=== PATIENT | female | born 1955 | race African-American/Black ===

== ENCOUNTER 2017-02-03 09:41 | Inpatient (IN) | payer SELFPAY ==
[2017-02-03] VITALS (11 sets, daily range): BP systolic 106–147; BP diastolic 74–98; PULSE 57–78; RESP 16–26; TEMP 97.6–98.2; O2SAT 97–100
[~2017-02-03] VITALS: Ht 167.6 cm; Wt 49.5 kg
--- NOTE | 2017-02-03 10:22 | PD ---
HPI Chief Complaint: General Weakness Time Seen by Provider: 10:22 Travel History International Travel<30 days: No Contact w/Intl Traveler<30days: No Traveled to known affect area: No History of Present Illness HPI 62-year-old female came to the emergency room with vague complains of mid back pain going all the way across. Patient says it started yesterday and the pain is just there all the times. No aggravating or relieving factors. No history of nausea vomiting. Her significant other is in the room and says that she has just been tired and sleeping all day. Vital signs were acceptable. She has history of CVA in the past but currently not on any medications. Patient also mentioned that in between her fourth and the fifth toe of both feet she has an ulcer that is not healing well. [facility] Past Medical History Narrative Medical List of her past medical, surgical, social and family history is reviewed from the nursing note. Hx Anticoagulant Therapy: No Cardiovascular Problems: No Chemotherapy: No Cerebrovascular Accident: Yes (2011) Diabetes: No Respiratory: No ?: Not Past Surgical History Hysterectomy: No Social History Alcohol Use: No Tobacco Use: No Substance Use: No Allergies-Medications (Allergen,Severity, Reaction): Coded Allergies: No Known Allergies (Unverified , 02/03/17) Comments No known drug allergies. Reported Meds & Prescriptions Reported Meds & Active Scripts Active Narrative Medication List of her home medications reviewed from the nursing note. Review of Systems Except as stated in HPI: all other systems reviewed are Neg Physical Exam Narrative GENERAL: Awake, alert, mild distress SKIN: Focused skin assessment warm/dry. There is a nonhealing ulcer that is blanched between the fourth and the fifth toe on both feet HEAD: Atraumatic. Normocephalic. EYES: Pupils equal and round. No scleral icterus. No injection or drainage. ENT: No nasal bleeding or discharge. Mucous membranes pink and moist. NECK: Trachea midline. No JVD. CARDIOVASCULAR: Regular rate and rhythm. No murmur appreciated. RESPIRATORY: No accessory muscle use. Clear to auscultation. Breath sounds equal bilaterally. GASTROINTESTINAL: Abdomen soft, non-tender, nondistended. Hepatic and splenic margins not palpable. MUSCULOSKELETAL: No obvious deformities. No clubbing. No cyanosis. No edema. NEUROLOGICAL: Awake and alert. No obvious cranial nerve deficits. Motor grossly within normal limits. Normal speech. PSYCHIATRIC: Appropriate mood and affect; insight and judgment normal. Data Data Last Documented VS Vital Signs Date Time Temp Pulse Resp B/P (MAP) Pulse Ox O2 Delivery O2 Flow Rate FiO2 02/03/17 12:00 57 18 134/77 (96) 100 Room Air 02/03/17 10:39 97.6 Orders Orders Electrocardiogram (02/03/17 10:50) Basic Metabolic Panel (Bmp) (02/03/17 10:50) Ckmb (Isoenzyme) Profile (02/03/17 10:50) Complete Blood Count With Diff (02/03/17 10:50) D-Dimer (02/03/17 10:50) Magnesium (Mg) (02/03/17 10:50) Prothrombin Time / Inr (Pt) (02/03/17 10:50) Act Partial Throm Time (Ptt) (02/03/17 10:50) Troponin I (02/03/17 10:50) Chest, Single Ap (02/03/17 10:50) Ecg Monitoring (02/03/17 10:50) Bilateral Bp Monitoring (02/03/17 10:50) Iv Access Insert/Monitor (02/03/17 10:50) Oximetry (02/03/17 10:50) Oxygen Administration (02/03/17 10:50) Aspirin Chew (Aspirin Chew) (02/03/17 11:00) Sodium Chloride 0.9% Flush (Ns Flush) (02/03/17 11:00) CKMB (02/03/17 10:50) CKMB% (02/03/17 10:50) Heparin Inj (Heparin Inj) (02/03/17 11:30) Heparin Inj (Heparin Inj) (02/03/17 17:30) Heparin Inj (Heparin Inj) (02/03/17 17:30) Heparin-D5w 25,000 U/250 Ml (Heparin-D5w (02/03/17 11:30) Act Partial Throm Time (Ptt) (02/03/17 11:29) Cbc No Diff, Includes Plts (02/03/17 11:29) Cta Thor Abd Aorta W Iv C W3d (02/03/17 ) Sodium Chlor 0.9% 1000 Ml Inj (Ns 1000 M (02/03/17 12:15) Admit To Inpatient (02/03/17 ) Code Status (02/03/17 12:15) Vital Signs (Adult) Q4H (02/03/17 12:15) Activity Bed Rest With Brp (02/03/17 ) Drafter Engineering / Telemetry RAMONA.Q8H (02/03/17 12:15) Diet Heart Healthy (02/03/17 Lunch) Sodium Chloride 0.9% Flush (Ns Flush) (02/03/17 21:00) Sodium Chloride 0.9% Flush (Ns Flush) (02/03/17 12:15) Aspirin Chew (Aspirin Chew) (02/03/17 12:15) Nitroglycerin Sl (Nitrostat Sl) (02/03/17 12:15) Morphine Inj (Morphine Inj) (02/03/17 12:15) Pantoprazole (Protonix) (02/03/17 12:15) Temazepam (Restoril) (02/03/17 21:00) Creatine Kinase (Cpk) (02/03/17 12:15) Creatine Kinase (Cpk) (02/03/17 18:15) Troponin I (02/03/17 12:15) Troponin I (02/03/17 18:15) Magnesium (Mg) (02/03/17 12:15) Electrocardiogram (02/03/17 12:15) Electrocardiogram (02/03/17 18:15) Echo 2d Comp With Doppler (02/03/17 12:15) Scd Bilateral/Knee High RAMONA.BID (02/03/17 12:15) Inpatient Certification (02/03/17 ) Consult Pt Eval & Treat (02/03/17 12:20) Admit Order (Ed Use Only) (02/03/17 12:23) Labs Laboratory Tests Test 02/03/17 10:50 White Blood Count 4.9 TH/MM3 Red Blood Count 5.68 MIL/MM3 Hemoglobin 16.0 GM/DL Hematocrit 48.5 % Mean Corpuscular Volume 85.3 FL Mean Corpuscular Hemoglobin 28.1 PG Mean Corpuscular Hemoglobin Concent 33.0 % Red Cell Distribution Width 14.8 % Platelet Count 158 TH/MM3 Mean Platelet Volume 9.1 FL Neutrophils (%) (Auto) 63.3 % Lymphocytes (%) (Auto) 17.7 % Monocytes (%) (Auto) 18.5 % Eosinophils (%) (Auto) 0.0 % Basophils (%) (Auto) 0.5 % Neutrophils # (Auto) 3.1 TH/MM3 Lymphocytes # (Auto) 0.9 TH/MM3 Monocytes # (Auto) 0.9 TH/MM3 Eosinophils # (Auto) 0.0 TH/MM3 Basophils # (Auto) 0.0 TH/MM3 CBC Comment DIFF FINAL Differential Comment Prothrombin Time 11.5 SEC Prothromb Time International Ratio 1.0 RATIO Activated Partial Thromboplast Time 26.1 SEC D-Dimer Quantitative (PE/DVT) 0.67 MG/L FEU Blood Urea Nitrogen 18 MG/DL Creatinine 1.35 MG/DL Random Glucose 103 MG/DL Calcium Level 9.3 MG/DL Magnesium Level 2.2 MG/DL Sodium Level 137 MEQ/L Potassium Level 4.0 MEQ/L Chloride Level 104 MEQ/L Carbon Dioxide Level 27.0 MEQ/L Anion Gap 6 MEQ/L Estimat Glomerular Filtration Rate 48 ML/MIN Total Creatine Kinase 116 U/L Creatine Kinase MB 2.0 NG/ML Troponin I 0.11 NG/ML MDM Medical Decision Making Medical Screen Exam Complete: Yes Emergency Medical Condition: Yes Medical Record Reviewed: Yes Interpretation(s) Twelve-lead EKG was reviewed by me. Normal sinus rhythm, normal axis, minimal ST elevation in the septal leads that is less than 1 box. Heart rate of 66 bpm. Differential Diagnosis ACS, non-STEMI, unstable angina Narrative Course 11:35 AM blood test results are back and troponin is elevated. I started her on heparin bolus and drip. Patient will need to be admitted. Awaiting for the hospitalist to call back. Critical Care Narrative Aggregate critical care time was 30 minutes. Time to perform other separately billable procedures was not included in the critical care time. My time did not include minutes spent treating any other patients simultaneously or on activities that did not directly contribute to the patient's treatment. The services I provided to this patient were to treat and/or prevent clinically significant deterioration that could result in: Non-STEMI, heparin bolus and drip I provided critical care services requiring my management, as noted below: Chart data review, documentation time, medication orders and management, vital sign assessments/reviewing monitor data, ordering and reviewing lab tests, ordering and interpreting/reviewing x-rays and diagnostic studies, care of the patient and discussion of the patient with the admitting physicians. Procedures EKG Prior to Arrival: No Diagnosis Primary Impression: Non-STEMI (non-ST elevated myocardial infarction) Admitting Information Admitting Physician Requests: Admit Scripts Aspirin (Aspirin Low Strength) 81 Mg Chew 162 MG PO DAILY, #30 EA Prov: Ananth Felipe MD 02/05/17 Amlodipine (Norvasc) 5 Mg Tab 2.5 MG PO DAILY, #30 TAB Prov: Ananth Felipe MD 02/05/17 Jose Masterson MD Feb 03, 2017 10:22
[2017-02-03] MEDS ORDERED: ASPIRIN 81 MG CHEW TAB PO ONE (11:00)
[2017-02-03] MEDS ORDERED: SODIUM CHLORIDE 0.9% FLUSH 10 ML FLUSH IVF PRN (11:00)
[2017-02-03 11:03] LABS: AUTOMATED NEUTROPHIL # 3.1 TH/MM3 (1.8-7.7); BASOPHIL % 0.5 % (0.0-2.0); HEMATOCRIT 48.5 % (35.0-46.0); HEMO FLAGS DIFF FINAL; LYMPH % 17.7 % (9.0-44.0); LYMPHOCYTE # 0.9 TH/MM3 (1.0-4.8); MEAN CELL VOLUME 85.3 FL (80.0-100.0); MEAN CORPUSCULAR HEMOGLOBIN 28.1 PG (27.0-34.0); MONO % 18.5 % (0.0-8.0); NEUT % 63.3 % (16.0-70.0); PLATELET COUNT 158 TH/MM3 (150-450); RED BLOOD COUNT 5.68 MIL/MM3 (4.00-5.30); RED CELL DISTRIBUTION WIDTH 14.8 % (11.6-17.2); WHITE BLOOD COUNT 4.9 TH/MM3 (4.0-11.0)
[2017-02-03 11:18] LABS: APTT (PATIENT) 26.1 SEC (24.3-30.1); PROTHROMBIN TIME - PATIENT 11.5 SEC (9.8-11.6)
[2017-02-03 11:24] LABS: ANION GAP 6 MEQ/L (5-15); BLOOD UREA NITROGEN 18 MG/DL (7-18); CHLORIDE 104 MEQ/L (98-107); GLOMERULAR FILTRATION RATE 48 ML/MIN (>89); MAGNESIUM 2.2 MG/DL (1.5-2.5); SODIUM (NA) 137 MEQ/L (136-145)
[2017-02-03 11:27] LABS: CREATINE KINASE 116 U/L (26-192)
[2017-02-03] MEDS ORDERED: HEPARIN-D5W 25,000 U/250 ML 250 ML IV PRN (11:30)
[2017-02-03] MEDS ORDERED: HEPARIN SODIUM - IV 10,000 UNITS/10 ML VIAL IV ONE (11:30)
--- NOTE | 2017-02-03 11:57 | RADRPT ---
EXAM DATE/TIME: 02/03/2017 11:15 [facility] COMPARISON: No previous studies available for comparison. INDICATIONS : Chest pains, abdomen pains, nausea, and general weakness. MEDICAL HISTORY : None. SURGICAL HISTORY : None. ENCOUNTER: Initial ACUITY: 2 days PAIN SCORE: 5/10 LOCATION: Bilateral chest FINDINGS: A single view of the chest demonstrates the lungs to be symmetrically aerated without evidence of mas s, infiltrate or effusion. The heart size is mildly prominent. There is no perihilar edema. There ar e multiple overlying electrocardiogram leads.. Osseous structures are intact. CONCLUSION: No acute disease. Andreas Bills MD on February 03, 2017 at 11:55 Board Certified Radiologist. This report was verified electronically.
[2017-02-03] MEDS ORDERED: SODIUM CHLOR 0.9% 1000 ML INJ 1,000 ML IV ONE (12:15)
[2017-02-03] MEDS ORDERED: SODIUM CHLORIDE 0.9% FLUSH 10 ML FLUSH IV FLUSH PRN (12:15)
[2017-02-03] MEDS: ASPIRIN 81 MG CHEW TAB PO SCH (12:15)
[2017-02-03] MEDS ORDERED: NITROGLYCERIN 0.4 MG SL 25 TABS/BTL SL PRN (12:15)
[2017-02-03] MEDS ORDERED: MORPHINE SULFATE 4 MG/ML INJ IV PUSH PRN (12:15)
[2017-02-03] MEDS ORDERED: IODIXANOL 320 MG/ML 10 ML VIAL (for Rad CT) IV ONE (12:52)
--- NOTE | 2017-02-03 13:07 | RADRPT ---
EXAM DATE/TIME: 02/03/2017 12:26 [facility] COMPARISON: CHEST SINGLE AP, February 03, 2017, 11:15. INDICATIONS : Back pain and weakness. Chest pain IV CONTRAST: 95 cc Visipaque (iodixanol) IV RADIATION DOSE: 10.89 CTDIvol (mGy) MEDICAL HISTORY : Cerebrovascular disease. Hypertension. SURGICAL HISTORY : Tubal ligation. ENCOUNTER: Initial ACUITY: 2 days PAIN SCALE: 7/10 LOCATION: Bilateral back TECHNIQUE: Volumetric scanning was performed using a multi-row detector CT scanner. The data was post processed with a variety of visualization algorithms including full volume maximum intensity projection, multi -planar sliding thin slab reformation, curved planar reformation, and surface rendering techniques. Using automated exposure control and adjustment of the mA and/or kV according to patient size, radiat ion dose was kept as low as reasonably achievable to obtain optimal diagnostic quality images. DICOM format image data is available electronically for review and comparison. FINDINGS: LUNGS: There is no consolidation or pneumothorax. No concerning pulmonary nodule is visualized. No pleural fluid is present. MEDIASTINUM: No abnormally enlarged lymph nodes by CT criteria. No axillary or hilar abnormalities are identified. ABDOMEN: The liver and spleen are free of focal defects. The gallbladder and pancreas demonstrate no abnormali ty. The adrenal glands are normal. The kidneys demonstrate no evidence of solid renal mass or hydrone phrosis. No free fluid or abdominal masses are identified. No para-aortic adenopathy is seen. PELVIS: No evidence of free fluid or pelvic mass. No abnormally enlarged inguinal or retroperitoneal lymph no wes are present. The bladder is unremarkable. THORACIC AORTA: The thoracic aortic root is normal with normal branching of the great vessels. There is no evidence of aneurysm or dissection. ABDOMINAL AORTA: The aorta is normal in caliber without aneurysm or dissection. The renal arteries are patent bilater ally. The proximal celiac and superior mesenteric arteries are patent and normal in diameter. PELVIC VESSELS: The internal iliac and external iliac vessels are patent without aneurysm or stenosis. CONCLUSION: The thoracic and abdominal aorta are patent with no aneurysm or dissection. Andreas Bills MD on February 03, 2017 at 13:02 Board Certified Radiologist. This report was verified electronically.
[2017-02-03] MEDS: PANTOPRAZOLE SOD 40 MG DELAYED RELEASE TAB PO SCH (14:02)
--- NOTE | 2017-02-03 16:14 | ECHRPT ---
Indication: CHEST PAIN CONCLUSIONS Severe concentric left ventricular hypertrophy. The left ventricular systolic function is low normal with an estimated ejection fraction of 50%. Trace mitral valve regurgitation. Trace aortic regurgitation. BP: 137 / 77 HR: 57 Rhythm: Sinus MEASUREMENTS (Male / Female) Normal Values Technical Quality:Fair 2D ECHO LV Diastolic Diameter PLAX 3.5 cm 4.2 - 5.9 / 3.9 - 5.3 cm LV Systolic Diameter PLAX 2.5 cm IVS Diastolic Thickness 1.6 cm 0.6 - 1.0 / 0.6 - 0.9 cm LVPW Diastolic Thickness 1.6 cm 0.6 - 1.0 / 0.6 - 0.9 cm LV Relative Wall Thickness 0.9 LVOT Diameter 1.9 cm Aortic Root Diameter 2.8 cm LA Systolic Diameter LX 2.4 cm 3.0 - 4.0 / 2.7 - 3.8 cm M-MODE AV Cusp Separation MM 1.4 cm DOPPLER AV Peak Velocity 129.0 cm/s AV Peak Gradient 6.7 mmHg AV Mean Gradient 4.0 mmHg AV Velocity Time Integral 23.3 cm AI Peak Velocity 476.0 cm/s AI Peak Gradient 90.6 mmHg AI Pressure Half Time 587.0 ms LVOT Peak Velocity 85.7 cm/s LVOT Peak Gradient 2.9 mmHg LVOT Velocity Time Integral 14.8 cm LVOT Cardiac Index 1444.7 cm/minm AV Area Cont Eq vti 1.8 cm AV Area Cont Eq pk 1.9 cm Mitral E Point Velocity 81.4 cm/s Mitral A Point Velocity 64.2 cm/s Mitral E to A Ratio 1.3 LV E' Lateral Velocity 6.1 cm/s Mitral E to LV E' Lateral Ratio 13.3 LV E' Septal Velocity 3.4 cm/s Mitral E to LV E' Septal Ratio 23.9 PV Peak Velocity 62.4 cm/s PV Peak Gradient 1.6 mmHg FINDINGS LEFT VENTRICLE Severe concentric left ventricular hypertrophy. The left ventricular systolic function is low normal with an estimated ejection fraction of 50%. RIGHT VENTRICLE Normal right ventricular size and systolic function. LEFT ATRIUM The left atrial size is mildly dilated. RIGHT ATRIUM The right atrial size is normal. ATRIAL SEPTUM No atrial level shunt is demonstrated by color flow Doppler interrogation. AORTA The aortic root and proximal ascending aorta are normal in size on limited imaging. MITRAL VALVE Structurally normal mitral valve. Trace mitral valve regurgitation. AORTIC VALVE Trileaflet aortic valve. Trace aortic valve regurgitation. TRICUSPID VALVE Structurally normal tricuspid valve. No tricuspid regurgitation. Normal estimated pulmonary pressures. PULMONARY VALVE No pulmonary valve regurgitation or stenosis. VESSELS The inferior vena cava (IVC) is normal in size. There is greater than 50% respiratory change in dimension of the inferior vena cava (normal). PERICARDIUM No pericardial effusion. James Grande MD (Electronically Signed) Final Date:03 February 2017 16:14
[2017-02-03] MEDS ORDERED: HEPARIN SODIUM - IV 10,000 UNITS/10 ML VIAL IV PRN ×2 (17:30)
[2017-02-03] MEDS ORDERED: TEMAZEPAM 15 MG CAP PO PRN (21:00)
[2017-02-03] MEDS: SODIUM CHLORIDE 0.9% FLUSH 10 ML FLUSH IV FLUSH SCH (21:18)
[2017-02-03 22:19] LABS: HEMATOCRIT 43.2 % (35.0-46.0); MEAN CELL VOLUME 83.9 FL (80.0-100.0); MEAN CORPUSCULAR HEMOGLOBIN 28.8 PG (27.0-34.0); MEAN CORPUSCULAR HGB CONC 34.4 % (32.0-36.0); PLATELET COUNT 134 TH/MM3 (150-450); RED BLOOD COUNT 5.15 MIL/MM3 (4.00-5.30); RED CELL DISTRIBUTION WIDTH 14.2 % (11.6-17.2); REVIEW FLAG FINAL; WHITE BLOOD COUNT 3.7 TH/MM3 (4.0-11.0)
[2017-02-03 22:56] LABS: APTT (PATIENT) 97.9 SEC (24.3-30.1)
[2017-02-04] VITALS (24 sets, daily range): BP systolic 123–149; BP diastolic 85–94; PULSE 64–77; RESP 14–24; TEMP 98.3–98.8; O2SAT 98–100
[2017-02-04 03:02] LABS: APTT (PATIENT) 53.9 SEC (24.3-30.1)
[2017-02-04 03:07] LABS: MAGNESIUM 2.1 MG/DL (1.5-2.5)
[2017-02-04] MEDS: ASPIRIN 81 MG CHEW TAB PO SCH (08:51)
[2017-02-04] MEDS: PANTOPRAZOLE SOD 40 MG DELAYED RELEASE TAB PO SCH (08:51)
[2017-02-04] MEDS: SODIUM CHLORIDE 0.9% FLUSH 10 ML FLUSH IV FLUSH SCH ×2 (08:52→21:00)
[2017-02-04 13:10] LABS: APTT (PATIENT) 40.8 SEC (24.3-30.1)
--- NOTE | 2017-02-04 17:24 | HHI.HP ---
HPI Service [facility] Primary [facility] Physician Unknown Admission Diagnosis unstable angina, elevated troponin, non-STEMI Diagnoses: Chief Complaint: Chest pain. Travel History International Travel<30 Days: No Contact w/Intl Traveler <30 Da: No Traveled to Known Affected Are: No History of Present Illness 62-year-old female with a medical history significant for CVA, noncompliant with medications who presented to the emergency room with many vague complaints. The patient is a poor historian. She reports that she has been feeling very anxious with the storm and has experienced some chest pain which she is not able to describe. Pain only last minutes. She also had some upper back pain. Then reports a feeling of extreme fatigue. She presented to the emergency room and was found to have elevated troponins. The patient was started on a heparin drip in the emergency room and hospitalist service consulted for admission and further cardiac workup and treatment. Review of Systems ROS Limitations: Poor Historian Constitutional: DENIES: Fever, Chills Respiratory: DENIES: Shortness of breath Cardiovascular: COMPLAINS OF: Chest pain Gastrointestinal: DENIES: Nausea, Vomiting Psychiatric: COMPLAINS OF: Anxiety Except as stated in HPI: all other systems reviewed are Neg Past Family Social History Past Medical History History of CVA which affected the right side. She reports she regained most of the function back. Past Surgical History Tubal ligation Reported Medications Reported Meds & Active Scripts Active No Active Prescriptions or Reported Medications Allergies: Coded Allergies: No Known Allergies (Unverified , 02/03/17) Family History Reviewed and found to be noncontributory. No known family history of heart disease. Social History Patient does not use tobacco, alcohol, or illicit drug. Physical Exam Vital Signs Vital Signs Date Time Temp Pulse Resp B/P (MAP) Pulse Ox O2 Delivery O2 Flow Rate FiO2 02/04/17 16:29 70 02/04/17 15:44 98.6 74 18 137/91 (106) 98 02/04/17 15:44 74 02/04/17 14:11 72 02/04/17 13:56 74 02/04/17 11:47 77 02/04/17 11:36 98.3 72 17 123/85 (98) 100 02/04/17 10:00 76 02/04/17 09:00 76 02/04/17 08:14 98.7 68 17 145/94 (111) 100 02/04/17 08:00 66 02/04/17 07:30 66 02/04/17 06:00 70 02/04/17 05:00 64 02/04/17 04:00 68 02/04/17 03:00 64 02/04/17 03:00 98.4 64 14 128/93 (105) 99 02/04/17 02:00 64 02/04/17 01:00 66 02/04/17 00:00 72 02/03/17 23:00 98.2 67 22 131/89 (103) 99 02/03/17 23:00 74 02/03/17 22:00 62 02/03/17 21:23 97.8 69 26 131/84 (100) 99 02/03/17 21:00 68 02/03/17 20:00 78 Physical Exam GENERAL: This is a well-nourished, well-developed patient, in no apparent distress. SKIN: No rashes, ecchymoses or lesions. Cool and dry. HEAD: Atraumatic. Normocephalic. No temporal or scalp tenderness. EYES: Pupils equal round and reactive. Extraocular motions intact. No scleral icterus. No injection or drainage. ENT: Nose without bleeding, purulent drainage or septal hematoma. Throat without erythema, tonsillar hypertrophy or exudate. Uvula midline. Airway patent. NECK: Trachea midline. No JVD or lymphadenopathy. Supple, nontender, no meningeal signs. CARDIOVASCULAR: Regular rate and rhythm without murmurs, gallops, or rubs. RESPIRATORY: Clear to auscultation. Breath sounds equal bilaterally. No wheezes , rales, or rhonchi. GASTROINTESTINAL: Abdomen soft, non-tender, nondistended. No hepato-splenomegaly , or palpable masses. No guarding. MUSCULOSKELETAL: Extremities without clubbing, cyanosis, or edema. No joint tenderness, effusion, or edema noted. No calf tenderness. Negative Homans sign bilaterally. NEUROLOGICAL: Awake and alert. Cranial nerves II through XII intact. Motor and sensory grossly within normal limits. Five out of 5 muscle strength in all muscle groups. Normal speech. Laboratory Laboratory Tests Test 02/03/17 21:31 02/04/17 02:34 02/04/17 12:40 02/04/17 16:38 White Blood Count 3.7 Red Blood Count 5.15 Hemoglobin 14.9 Hematocrit 43.2 Mean Corpuscular Volume 83.9 Mean Corpuscular Hemoglobin 28.8 Mean Corpuscular Hemoglobin Concent 34.4 Red Cell Distribution Width 14.2 Platelet Count 134 Mean Platelet Volume 9.8 Activated Partial Thromboplast Time 97.9 53.9 40.8 Total Creatine Kinase 92 84 Troponin I 0.09 0.09 Magnesium Level 2.1 Blood Urea Nitrogen 15 Creatinine 1.00 Random Glucose 79 Calcium Level 8.6 Sodium Level 140 Potassium Level 4.0 Chloride Level 105 Carbon Dioxide Level 28.0 Anion Gap 7 Estimat Glomerular Filtration Rate 68 Result Diagram: 02/03/17213002/03/17 1050 Imaging Last Impressions Chest X-Ray 02/03/17 1050 Signed Impressions: Service Date/Time: Friday, February 03, 2017 11:15 - CONCLUSION: No acute disease. Andreas Bills MD Aorta CTA 02/03/17 0000 Signed Impressions: Service Date/Time: Friday, February 03, 2017 12:26 - CONCLUSION: The thoracic and abdominal aorta are patent with no aneurysm or dissection. MD Wendi Ontiverosi VTE Risk Assessment Alexirini VTE Risk Assessment: Mod/High Risk (score >= 2) Caprini Risk Assessment Model Point Value = 1 Point Value = 2 Point Value = 3 Point Value = 5 Age 41-60 Minor surgery BMI > 25 kg/m2 Swollen legs Varicose veins or History of unexplained or recurrent spontaneous Oral contraceptives or hormone replacement Sepsis (< 1 month) Serious lung disease, including pneumonia (< 1 month) Abnormal pulmonary function Acute myocardial infarction Congestive heart failure (< 1 month) History of inflammatory bowel disease Medical patient at bed rest Age 61-74 Arthroscopic surgery Major open surgery (> 45 min) Laparoscopic surgery (> 45 min) Malignancy Confined to bed (> 72 hours) Immobilizing plaster cast Central venous access Age >= 75 History of VTE Family history of VTE Factor V Leiden Prothrombin [id number] Lupus anticoagulant Anticardiolipin antibodies Elevated serum homocysteine Heparin-induced thrombocytopenia Other congenital or acquired thrombophilia Stroke (< 1 month) Elective arthroplasty Hip, pelvis, or leg fracture Acute spinal cord injury (< 1 month) Prophylaxis Regimen Total Risk Factor Score Risk Level Prophylaxis Regimen 0-1 Low Early ambulation 2 Moderate Order ONE of the following: *Sequential Compression Device (SCD) *Heparin 5000 units SQ BID 3-4 Higher Order ONE of the following medications: *Heparin 5000 units SQ TID *Enoxaparin/Lovenox 40 mg SQ daily (WT < 150 kg, CrCl > 30 mL/min) *Enoxaparin/Lovenox 30 mg SQ daily (WT < 150 kg, CrCl > 10-29 mL/min) *Enoxaparin/Lovenox 30 mg SQ BID (WT < 150 kg, CrCl > 30 mL/min) AND/OR *Sequential Compression Device (SCD) 5 or more Highest Order ONE of the following medications: *Heparin 5000 units SQ TID (Preferred with Epidurals) *Enoxaparin/Lovenox 40 mg SQ daily (WT < 150 kg, CrCl > 30 mL/min) *Enoxaparin/Lovenox 30 mg SQ daily (WT < 150 kg, CrCl > 10-29 mL/min) *Enoxaparin/Lovenox 30 mg SQ BID (WT < 150 kg, CrCl > 30 mL/min) AND *Sequential Compression Device (SCD) Assessment and Plan Problem List: (1) Elevated troponin I level ICD Code: R74.8 - Abnormal levels of other serum enzymes Plan: Mildly elevated at 0.11, She does have some degree of renal insufficiency which may contribute to the elevation in troponin. Currently chest pain-free. Risk factors include age. History of ischemic CVA. - Patient currently on heparin drip. Started in the emergency room. - Consult cardiology (2) History of CVA (cerebrovascular accident) ICD Code: Z86.73 - Personal history of transient ischemic attack (TIA), and cerebral infarction without residual deficits Plan: Apparently patient was previously on medications but she stopped it on her own. She should at least be on an aspirin. Restart aspirin. Discussed with the patient the need to be compliant and follow -up with medical doctors before stopping her medications. (3) Renal insufficiency ICD Code: N28.9 - Disorder of kidney and ureter, unspecified Plan: Likely prerenal azotemia from dehydration. - Patient received a liter of IV fluid. Encourage oral hydration. Follow-up BMP in the morning. Physician Certification 2 Midnight Certification Type: Admission for Inpatient Services Order for Inpatient Services The services are ordered in accordance with Medicare regulations or non- Medicare payer requirements, as applicable. In the case of services not specified as inpatient-only, they are appropriately provided as inpatient services in accordance with the 2-midnight benchmark. Estimated LOS (days): 2 days is the estimated time the patient will need to remain in the hospital, assuming treatment plan goals are met and no additional complications. Post-Hospital Plan: Home Ananth eFlipe MD Feb 04, 2017 17:24
--- NOTE | 2017-02-04 21:38 | EKG ---
Date Performed: 02/03/2017 Time Performed: 18:30:32 PTAGE: 62 years EKG: Sinus rhythm with PAC(s) Prolonged QT interval Possible septal infarct - age undetermined Abnormal ECG PREVIOUS TRACING : 02/03/2017 13.48 Compared to prior tracing no significant change DOCTOR: Jorge Alicea Interpretating Date/Time 02/04/2017 21:37:20
--- NOTE | 2017-02-04 21:51 | EKG ---
Date Performed: 02/03/2017 Time Performed: 13:48:00 PTAGE: 62 years EKG: Sinus rhythm MODERATE VOLTAGE CRITERIA FOR LVH, CONSIDER NORMAL VARIANT POSSIBLE SEPTAL MYOCARDIAL INFARCTION BOR DERLINE ECG PREVIOUS TRACING : 02/03/2017 09.59 Compared to prior tracing no significant change DOCTOR: Jorge Alicea Interpretating Date/Time 02/04/2017 21:51:10
--- NOTE | 2017-02-04 22:01 | EKG ---
Date Performed: 02/03/2017 Time Performed: 09:59:40 PTAGE: 62 years EKG: Sinus rhythm VOLTAGE CRITERIA FOR LVH POSSIBLE SEPTAL MYOCARDIAL INFARCTION ABNORMAL ECG NO PREVIOUS TRACING DOCTOR: Jorge Alicea Interpretating Date/Time 02/04/2017 21:59:18
[2017-02-05] VITALS (20 sets, daily range): BP systolic 136–159; BP diastolic 92–98; PULSE 60–86; RESP 18–20; TEMP 98.1–98.7; O2SAT 99–100
[2017-02-05 06:46] LABS: APTT (PATIENT) 39.3 SEC (24.3-30.1)
[2017-02-05] MEDS: PANTOPRAZOLE SOD 40 MG DELAYED RELEASE TAB PO SCH (08:36)
[2017-02-05] MEDS: SODIUM CHLORIDE 0.9% FLUSH 10 ML FLUSH IV FLUSH SCH (08:37)
[2017-02-05] MEDS: ASPIRIN 81 MG CHEW TAB PO SCH (08:37)
--- NOTE | 2017-02-05 10:57 | HHI.PR ---
Subjective Remarks Patient reports she is feeling great. No chest pain or shortness of breath. Wondering when she can go home. Objective Vitals Vital Signs Date Time Temp Pulse Resp B/P (MAP) Pulse Ox O2 Delivery O2 Flow Rate FiO2 02/05/17 08:30 98.7 67 18 139/92 (108) 99 02/05/17 07:01 66 02/05/17 06:00 60 02/05/17 05:00 70 02/05/17 04:00 68 02/05/17 03:00 98.5 72 20 149/93 (111) 100 02/05/17 03:00 62 02/05/17 02:00 66 02/05/17 01:00 68 02/05/17 00:00 86 02/04/17 23:00 98.5 72 20 149/92 (111) 100 02/04/17 23:00 70 02/04/17 22:00 70 02/04/17 21:00 66 02/04/17 20:00 70 02/04/17 19:00 70 02/04/17 19:00 98.8 72 24 137/94 (108) 99 02/04/17 18:26 74 02/04/17 16:29 70 02/04/17 15:44 98.6 74 18 137/91 (106) 98 02/04/17 15:44 74 02/04/17 14:11 72 02/04/17 13:56 74 02/04/17 11:47 77 02/04/17 11:36 98.3 72 17 123/85 (98) 100 I/O 02/04/17 02/04/17 02/04/17 02/05/17 02/05/17 02/05/17 06:59 14:59 22:59 06:59 14:59 22:59 Intake Total 264 ml 976 ml 312 ml Output Total 900 ml 750 ml Balance -636 ml 976 ml -438 ml Intake Oral 240 ml 960 ml 240 ml IV Total 24 ml 16 ml 72 ml Output Urine Total 900 ml 750 ml # Voids 4 # Bowel Movements 1 Result Diagram: 02/03/17 2131 02/04/17 1638 Imaging Last Impressions Chest X-Ray 02/03/17 1050 Signed Impressions: Service Date/Time: Friday, February 03, 2017 11:15 - CONCLUSION: No acute disease. Andreas Bills MD Aorta CTA 02/03/17 0000 Signed Impressions: Service Date/Time: Friday, February 03, 2017 12:26 - CONCLUSION: The thoracic and abdominal aorta are patent with no aneurysm or dissection. Andreas Bills MD Objective Remarks GENERAL: This is a well-nourished, well-developed patient, in no apparent distress. CARDIOVASCULAR: Normal rate and regular rhythm without murmurs, gallops, or rubs. RESPIRATORY: Good respiratory efforts. Breath sounds equal and clear to auscultation bilaterally. GASTROINTESTINAL: Abdomen soft, non-tender, non-distended. Normal active bowel sounds MUSCULOSKELETAL: Extremities without cyanosis, or edema. NEURO: Alert & Oriented x4 to person, place, time, situation. Moves all ext x4 PSYCH: Appropriate mood and affect. A/P Problem List: (1) Elevated troponin I level ICD Code: R74.8 - Abnormal levels of other serum enzymes Plan: Mildly elevated at 0.11, She does have some degree of renal insufficiency which may contribute to the elevation in troponin. Currently chest pain-free. Risk factors include age. History of ischemic CVA. - Patient was started on a heparin drip. She was evaluated by cardiology who indicated the mild troponin elevation is likely secondary to renal insufficiency. Advised outpatient follow-up with cardiology. No further inpatient workup indicated. -Patient's symptoms completely resolved. She can be discharged home. - She is discharged on aspirin and amlodipine for better blood pressure control. - Awaiting lipid profile results to determine if the patient would benefit from a statin. (2) History of CVA (cerebrovascular accident) ICD Code: Z86.73 - Personal history of transient ischemic attack (TIA), and cerebral infarction without residual deficits Plan: Apparently patient was previously on medications but she stopped it on her own. She should at least be on an aspirin. Restart aspirin. Discussed with the patient the need to be compliant and follow -up with medical doctors before stopping her medications. (3) Renal insufficiency ICD Code: N28.9 - Disorder of kidney and ureter, unspecified Plan: Likely prerenal azotemia from dehydration. - Patient received a liter of IV fluid. Renal function improved. Encourage oral hydration. Discharge Planning Discharge home in good condition Follow-up with: PCP and cardiology outpatient Diet: Heart healthy Activity: Regular as tolerated Meds: Per med rec Ananth Felipe MD Feb 05, 2017 10:57
[2017-02-05] MEDS ORDERED: amLODIPine BESYLATE 5 MG TAB PO SCH (12:15)
--- NOTE | 2017-02-05 12:59 | MB ---
cc: FRANCES GONZALES DATE OF CONSULTATION: 02/05/2017 1953 REASON FOR CONSULTATION Elevated troponins. HISTORY OF PRESENT ILLNESS 62-year-old female with past medical history significant for CVA, noncompliant with medications, hypertension, that presents to the hospital with vague complaints of abdominal pain, chest pain and head pain. The patient reports that for the following couple of days she has been feeling anxious with the storm and has experienced this vague complaints that come from the abdomen and chest and head pains. Also some back pain as well as fatigue. The patient was admitted to the [facility] for further evaluation and was found that she had mildly elevated troponins in the range of 0.11 which trended down to 0.9 and 0.9 in the setting of an acute kidney injury. Cardiology has been consulted for further management and evaluation. Currently the patient reports she is feeling well. She denies any chest pain, palpitations, syncope, PND, chest trauma, diaphoresis, shortness of breath on exertion. PAST MEDICAL HISTORY 1. History of CVA which affected the right side. 2. Hypertension. 3. Noncompliant with medications. PAST SURGICAL HISTORY Tubal ligation. MEDICATION Home medications: None. ALLERGIES NO KNOWN DRUG ALLERGIES. FAMILY HISTORY Noncontributory. SOCIAL HISTORY She denies alcohol use, smoking or illicit drug use. PHYSICAL EXAMINATION VITAL SIGNS: Temperature 98.7, respiratory rate 18, heart rate 66, blood pressure 139/92, O2 sat 100% on room air. GENERAL: She is awake, alert, oriented x3, in no acute distress. NECK: No JVD or carotid bruits. HEART: Regular rate and rhythm. No murmurs, rubs or gallops. LUNGS: Clear to auscultation bilaterally. No wheezes, no rhonchi or rales. ABDOMEN: Benign. EXTREMITIES: No cyanosis or edema. Pulses throughout. DATA CBC hemoglobin 14, hematocrit 42, platelet count 134. WBC 3.7. INR 1.0. Chemistries sodium 140, potassium 4.0, chloride 105, bicarb 28, BUN 15, creatinine 1.0, trending down from 1.35, troponin 0.11 0.09 and 0.09. IMAGING STUDIES Chest x-ray shows no acute cardiopulmonary process. Aorta CTA negative for dissection. ECHOCARDIOGRAM Shows a normal LV systolic function with an estimated ejection fraction of 50% and no wall motion abnormalities or significant valulopathies. ASSESSMENT/PLAN 62-year-old female with above history and findings, consulted for vague complaints of pain and mildly elevated troponins in the setting of acute kidney injury. The patient remains afebrile and hemodynamically stable. She denies any cardiovascular complaints. A 2-D echocardiogram revealed a normal LV systolic function with an estimated ejection fraction of 50% and no wall motion abnormalities. EKG shows sinus rhythm with LVH, no acute ST changes. The telemetry has been unchanged and the EKG since admission. The troponin elevation is likely due to acute kidney injury. She remains with no cardiovascular complaints, at this time, I would not pursue any cardiovascular workup. The heparin drip should be discontinued and medication for primary prevention of CAD should be optimized. The patient should follow with cardiology upon discharge. Thank you for the opportunity to take part in the care of this patient. MD WIHT Hernandez/TLL /11:58 AM /12:39 PM ANAHI
[2017-02-05] MEDS ORDERED: AMLO5 PO (13:55)
[2017-02-05] MEDS ORDERED: ASPI81CH25 PO (13:55)
[2017-02-05 14:27] LABS: HDL CHOLESTEROL 39.8 MG/DL (40.0-60.0)
--- NOTE | 2017-02-05 15:25 | HHI.DCPOC ---
Discharge Care Plan Diagnosis: (1) Elevated troponin I level (2) Renal insufficiency (3) History of CVA (cerebrovascular accident) Goals to Promote Your Health * To prevent worsening of your condition and complications * To maintain your health at the optimal level Directions to Meet Your Goals Take your medications as prescribed Follow your dietary instruction Follow activity as directed Keep your appointments as scheduled Take your immunizations and boosters as scheduled If your symptoms worsen call your PCP, if no PCP go to Urgent Care Center or Emergency Room Smoking is Dangerous to Your Health. Avoid second hand smoke Call the 24-hour hour crisis hotline for domestic abuse at Ananth Felipe MD Feb 05, 2017 15:25
== END 2017-02-05 18:22 | disposition home or self-care (01) | DRG 311 ==
LOC: NEPE 09:41 → NEDA 12:25 → HCIS 16:33
PROVIDERS: ADMIT Family Medicine; ATTEND Family Medicine
DX: I20.0 Unstable angina (principal); N17.9 Acute kidney failure, unspecified; R94.39 Abnormal result of other cardiovascular function study; I10 Essential (primary) hypertension; Z86.73 Personal history of transient ischemic attack (TIA), and cerebral infarction without residual deficits; Z91.14 Patient's other noncompliance with medication regimen; E86.0 Dehydration
CPT/HCPCS: 71010; 71275; 74174; 80048; 80061; 82550; 82552; 83735; 84484; 85025; 85027; 85379; 85610; 85730; 93005; 93306; 96374; 96375; J1644; J7030; Q9967

== ENCOUNTER 2017-08-18 15:12 | Observation (INO) | payer SELFPAY ==
[~2017-08-18 15:12] MED LIST: AMLO5 PO; ASPI81CH25 PO
[2017-08-18 15:17] VITALS: BP 136/86; PULSE 71; RESP 22; TEMP 97.9; O2SAT 100
--- NOTE | 2017-08-18 16:11 | RADRPT ---
EXAM DATE/TIME: 08/18/2017 15:59 [facility] COMPARISON: No previous studies available for comparison. INDICATIONS : Patient complains of tingling and weakness to right side of face. RADIATION DOSE: 56.35 CTDIvol (mGy) MEDICAL HISTORY : Cerebrovascular disease. Hypertension. SURGICAL HISTORY : Tubal ligation. ENCOUNTER: Initial ACUITY: 1 day PAIN SCALE: 5/10 LOCATION: cranial TECHNIQUE: Multiple contiguous axial images were obtained of the head. Using automated exposure control and adj ustment of the mA and/or kV according to patient size, radiation dose was kept as low as reasonably a chievable to obtain optimal diagnostic quality images. DICOM format image data is available electro nically for review and comparison. FINDINGS: CEREBRUM: The ventricles are mildly enlarged. Increased density is seen throughout the cerebral white matter es pecially the frontal lobes. No evidence of midline shift, mass lesion, hemorrhage or acute infarctio n. No extra-axial fluid collections are seen. POSTERIOR FOSSA: The cerebellum and brainstem are intact. The 4th ventricle is midline. The cerebellopontine angle i s unremarkable. EXTRACRANIAL: The visualized portion of the orbits is intact. SKULL: The calvaria is intact. No evidence of skull fracture. CONCLUSION: 1. Mild ventricular dilatation with chronic ischemic white matter changes. 2. No evidence of acute infarct, hemorrhage, mass or edema. Nirav Correa MD on August 18, 2017 at 16:06 Board Certified Radiologist. This report was verified electronically.
--- NOTE | 2017-08-18 16:25 | RADRPT ---
EXAM DATE/TIME: 08/18/2017 15:45 [facility] COMPARISON: No previous studies available for comparison. INDICATIONS : Syncope. Right sided numbness that started today. MEDICAL HISTORY : Cerebrovascular disease. Hypertension. SURGICAL HISTORY : Tubal ligation. ENCOUNTER: Initial ACUITY: 1 day PAIN SCORE: 0/10 LOCATION: Bilateral chest FINDINGS: PA and lateral views of the chest demonstrate the lungs to be symmetrically aerated without evidence of mass, infiltrate or effusion. The cardiomediastinal contours are unremarkable. Osseous structure s are intact. CONCLUSION: 1. No active disease. Ramana Woods MD on August 18, 2017 at 16:19 Board Certified Radiologist. This report was verified electronically.
[2017-08-18 17:03] VITALS: BP 155/98; PULSE 75; RESP 18; TEMP 98.4; O2SAT 100
--- NOTE | 2017-08-18 17:03 | PD ---
HPI Chief Complaint: Neuro Symptoms/ Deficits Time Seen by Provider: 17:03 Travel History International Travel<30 days: No Contact w/Intl Traveler<30days: No Traveled to known affect area: No History of Present Illness HPI 62-year-old female came to the emergency room with history of right lower extremity numbness that started yesterday. Patient says right now the sensation seems to have improved. She also complains of bilateral shoulder pain. 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 She got an MRI of her right shoulder done 4-5 days ago and awaiting the result of that. Patient is not the best historian and there is some language barrier. Patient says she had stroke. Ears ago when she was in [place]. Vital signs were stable. Blood work and CAT scan was ordered in triage. At home and took 2 of her baby aspirins this morning. PFSH Past Medical History Narrative Medical List of her past medical, surgical, social and family history is reviewed from the nursing note. Hx Anticoagulant Therapy: No Cardiovascular Problems: No Chemotherapy: No Cerebrovascular Accident: Yes (2012 r sided weakness ) Diabetes: No Diminished Hearing: No Hypertension: Yes Respiratory: No Menopausal: Yes Tubal Ligation: Yes Past Surgical History Hysterectomy: No Social History Alcohol Use: No Tobacco Use: No Substance Use: No Allergies-Medications (Allergen,Severity, Reaction): Coded Allergies: No Known Allergies (Unverified , 02/03/17) Comments No known drug allergies Reported Meds & Prescriptions Reported Meds & Active Scripts Active Aspirin Low Strength (Aspirin) 81 Mg Chew 162 Mg PO DAILY Norvasc (Amlodipine Besylate) 5 Mg Tab 2.5 Mg PO DAILY Narrative Medication List of her home medications reviewed from the nursing note. Review of Systems Except as stated in HPI: all other systems reviewed are Neg Musculoskeletal: Positive: Pain Neurologic: Positive: Paresthesia Physical Exam Narrative GENERAL: Awake, alert, moderate distress SKIN: Focused skin assessment warm/dry. HEAD: Atraumatic. Normocephalic. EYES: Pupils equal and round. No scleral icterus. No injection or drainage. ENT: No nasal bleeding or discharge. Mucous membranes pink and moist. NECK: Trachea midline. No JVD. CARDIOVASCULAR: Regular rate and rhythm. No murmur appreciated. RESPIRATORY: No accessory muscle use. Clear to auscultation. Breath sounds equal bilaterally. GASTROINTESTINAL: Abdomen soft, non-tender, nondistended. Hepatic and splenic margins not palpable. MUSCULOSKELETAL: No obvious deformities. No clubbing. No cyanosis. No edema. Decreased range of motion of both shoulders right worse than left knee due to pain. NEUROLOGICAL: Awake and alert. No obvious cranial nerve deficits. Motor grossly within normal limits. Normal speech. NIH stroke score of 0 PSYCHIATRIC: Appropriate mood and affect; insight and judgment normal. Data Data Last Documented VS Orders Orders Electrocardiogram (08/18/17 15:21) Prothrombin Time / Inr (Pt) (08/18/17 15:21) Act Partial Throm Time (Ptt) (08/18/17 15:21) Complete Blood Count With Diff (08/18/17 15:21) Comprehensive Metabolic Panel (08/18/17 15:21) Creatine Kinase (Cpk) (08/18/17 15:21) Troponin I (08/18/17 15:21) Ct Brain W/O Iv Contrast(Rout) (08/18/17 15:21) Chest, Pa & Lat (08/18/17 ) Ketorolac Inj (Toradol Inj) (08/18/17 17:30) Admit Order (Ed Use Only) (08/18/17 19:09) Place In Observation (08/18/17 ) Vital Signs (Adult) Q2HX12,Q4H (08/18/17 19:19) Nih Stroke Scale - Nihss .Daily (08/18/17 19:19) Neuro Checks Q2HX12,Q4H (08/18/17 19:19) Notify Dr: Other (08/18/17 19:19) Remove Urinary Catheter .ONCE (08/18/17 19:19) Pt Request For Service (08/18/17 19:19) Case Management Consult (08/18/17 ) Activity Oob Ad Maris (08/18/17 19:19) Nursing Bedside Swallow Assess .ONCE (08/18/17 19:19) Scd Bilateral/Knee High RAMONA.QSHIFT (08/18/17 19:19) Hemoglobin (Hgb) A1c (08/18/17 19:19) Us Carotid Arteries Comp Bilat (08/18/17 ) Mra Brain W/O Contrast (Cow) (08/18/17 ) Mri Brain W/O Contrast (08/18/17 ) ^ Hold Medication (08/18/17 19:19) Consult Neurology (08/18/17 ) Sodium Chloride 0.9% Flush (Ns Flush) (08/18/17 21:00) Sodium Chloride 0.9% Flush (Ns Flush) (08/18/17 19:30) Dextrose 50% In Mari (Vial) Inj (D50w (Vi (08/18/17 19:30) Glucagon Inj (Glucagon Inj) (08/18/17 19:30) Consult Stroke Navigator (08/18/17 ) Creatine Kinase (Cpk) (08/18/17 23:00) Creatine Kinase (Cpk) (08/19/17 05:00) Troponin I (08/18/17 23:00) Troponin I (08/19/17 05:00) Electrocardiogram (08/18/17 23:00) Electrocardiogram (08/19/17 05:00) Echo 2d Comp With Doppler (08/19/17 ) Labs Laboratory Tests Test 08/18/17 17:08 White Blood Count 5.6 TH/MM3 Red Blood Count 5.31 MIL/MM3 Hemoglobin 15.1 GM/DL Hematocrit 44.9 % Mean Corpuscular Volume 84.6 FL Mean Corpuscular Hemoglobin 28.3 PG Mean Corpuscular Hemoglobin Concent 33.5 % Red Cell Distribution Width 15.1 % Platelet Count 187 TH/MM3 Mean Platelet Volume 9.2 FL Neutrophils (%) (Auto) 51.3 % Lymphocytes (%) (Auto) 36.1 % Monocytes (%) (Auto) 10.7 % Eosinophils (%) (Auto) 1.6 % Basophils (%) (Auto) 0.3 % Neutrophils # (Auto) 2.9 TH/MM3 Lymphocytes # (Auto) 2.0 TH/MM3 Monocytes # (Auto) 0.6 TH/MM3 Eosinophils # (Auto) 0.1 TH/MM3 Basophils # (Auto) 0.0 TH/MM3 CBC Comment AUTO DIFF Differential Comment AUTO DIFF CONFIRMED Platelet Estimate NORMAL Platelet Morphology Comment ENLARGED Prothrombin Time 10.4 SEC Prothromb Time International Ratio 1.0 RATIO Activated Partial Thromboplast Time 23.9 SEC Blood Urea Nitrogen 11 MG/DL Creatinine 0.78 MG/DL Random Glucose 84 MG/DL Total Protein 7.7 GM/DL Albumin 3.5 GM/DL Calcium Level 9.1 MG/DL Alkaline Phosphatase 77 U/L Aspartate Amino Transf (AST/SGOT) 26 U/L Alanine Aminotransferase (ALT/SGPT) 53 U/L Total Bilirubin 0.4 MG/DL Sodium Level 143 MEQ/L Potassium Level 4.3 MEQ/L Chloride Level 107 MEQ/L Carbon Dioxide Level 29.9 MEQ/L Anion Gap 6 MEQ/L Estimat Glomerular Filtration Rate 90 ML/MIN Total Creatine Kinase 96 U/L Troponin I 0.06 NG/ML [facility] Medical Decision Making Medical Screen Exam Complete: Yes Emergency Medical Condition: Yes Medical Record Reviewed: Yes Interpretation(s) Twelve-lead EKG was reviewed by me. Normal sinus rhythm, normal axis, nonspecific ST-T wave changes, LVH by voltage criteria, [address] elevation in the septal leads with Q waves that's unchanged from the old EKG. Heart rate of 73 bpm. Differential Diagnosis TIA, CVA, intercranial bleed Narrative Course 6:[address] head was negative and chest x-ray was negative. Blood test results of back and troponin is mildly elevated. Awaiting for the hospitalist to admit the patient. Procedures EKG Prior to Arrival: No Diagnosis Primary Impression: Elevated troponin I level Additional Impressions: TIA (transient ischemic attack) Qualified Codes: G45.9 - Transient cerebral ischemic attack, unspecified Shoulder pain Qualified Codes: M25.511 - Pain in right shoulder; M25.512 - Pain in left shoulder; G89.29 - Other chronic pain Admitting Information Admitting Physician Requests: Admit Scripts Lisinopril (Lisinopril) 5 Mg Tab 5 MG PO DAILY for Blood Pressure Management, #30 TAB Prov: Haley Manzanares 08/20/17 Metoprolol Tartrate (Metoprolol Tartrate) 25 Mg Tab 12.5 MG PO Q12HR for Blood Pressure Management, #30 TAB Prov: Haley Manzanares 08/20/17 Atorvastatin (Atorvastatin) 10 Mg Tab 10 MG PO HS for Cholesterol Management, #30 TAB 0 Refills Prov: Haley Manzanares 08/20/17 Jose Masterson MD Aug 18, 2017 17:03
[2017-08-18] MEDS ORDERED: KETOROLAC TROMETHAMINE 30 MG/ML (IVP) VIAL IV PUSH ONE (17:30)
[2017-08-18 17:48] LABS: AUTOMATED NEUTROPHIL # 2.9 TH/MM3 (1.8-7.7); BASOPHIL % 0.3 % (0.0-2.0); EOSINOPHIL # 0.1 TH/MM3 (0-0.4); EOSINOPHIL % 1.6 % (0.0-4.0); HEMATOCRIT 44.9 % (35.0-46.0); HEMOGLOBIN 15.1 GM/DL (11.6-15.3); LYMPH % 36.1 % (9.0-44.0); MEAN CELL VOLUME 84.6 FL (80.0-100.0); MEAN CORPUSCULAR HEMOGLOBIN 28.3 PG (27.0-34.0); MEAN CORPUSCULAR HGB CONC 33.5 % (32.0-36.0); MEAN PLATELET VOLUME 9.2 FL (7.0-11.0); MONO % 10.7 % (0.0-8.0); MONOCYTE # 0.6 TH/MM3 (0-0.9); NEUT % 51.3 % (16.0-70.0); PLATELET COUNT 187 TH/MM3 (150-450); RED BLOOD COUNT 5.31 MIL/MM3 (4.00-5.30); RED CELL DISTRIBUTION WIDTH 15.1 % (11.6-17.2); WHITE BLOOD COUNT 5.6 TH/MM3 (4.0-11.0)
[2017-08-18 18:05] LABS: ALBUMIN 3.5 GM/DL (3.4-5.0); ALT (GPT) 53 U/L (10-53); AST (GOT) 26 U/L (15-37); BICARBONATE 29.9 MEQ/L (21.0-32.0); BLOOD UREA NITROGEN 11 MG/DL (7-18); CALCIUM 9.1 MG/DL (8.5-10.1); CHLORIDE 107 MEQ/L (98-107); CREATININE 0.78 MG/DL (0.50-1.00); GLOMERULAR FILTRATION RATE 90 ML/MIN (>89); GLUCOSE,RANDOM 84 MG/DL (74-106); SODIUM (NA) 143 MEQ/L (136-145)
[2017-08-18 18:09] LABS: ALKALINE PHOSPHATASE 77 U/L (45-117); PROTHROMBIN TIME - PATIENT 10.4 SEC (9.8-11.6); TOTAL BILIRUBIN ADULT 0.4 MG/DL (0.2-1.0); TOTAL PROTEIN 7.7 GM/DL (6.4-8.2); TROPONIN I 0.06 NG/ML (0.02-0.05)
[2017-08-18 19:29] VITALS: BP 148/78; PULSE 72; RESP 18; TEMP 98; O2SAT 100
[2017-08-18] MEDS ORDERED: GLUCAGON 1 MG/ML VIAL OTHER PRN (19:30)
[2017-08-18] MEDS ORDERED: DEXTROSE 50% IN WATER 50 ML VIAL(D50) IV PUSH PRN (19:30)
[2017-08-18] MEDS ORDERED: SODIUM CHLORIDE 0.9% FLUSH 10 ML FLUSH IV FLUSH PRN (19:30)
--- NOTE | 2017-08-18 20:10 | HHI.HP ---
HPI Service [facility] Primary Care Physician Unknown Admission Diagnosis TIA, elevated troponin Diagnoses: (1) Leg pain, right (2) Elevated troponin I level Chief Complaint: Right lower extremity pain Travel History International Travel<30 Days: No Contact w/Intl Traveler <30 Da: No Traveled to Known Affected Are: No History of Present Illness Ms. Harris is a 62 y/o female from [place] with history of left hemisphere CVA who presented to the ER on 08/17/2017 complaining of right lower extremity pain. Workup revealed mildly elevated troponin at 0.06 and she is admitted to the hospitalist service for ACS rule out and TIA workup. The patient is seen in the emergency room. She complains of severe right lateral thigh pain and posterior calf pain that is not present at rest. Patient states that when she attempts to sit in a chair and dangle her legs, this exacerbates the pain. When she is laying flat, the pain is not there. She also complains of left shoulder pain and apparently had an outpatient MRI for this. Results are still pending according to the ER physician. Her right lower extremity symptoms are accompanied by some mild paresthesias. She has left upper extremity mild weakness secondary to poor effort related to pain. Patient also complained of left-sided chest pain accompanied by diaphoresis, nausea, and dyspnea after her right lower extremity pain started. The pain is no longer present at the time of my visit. She is unsure of what relieved her pain. She denies any family history of CVA or CAD. She denies any personal history of coronary artery disease. She denies any recent fever, chills, nausea, vomiting, or diarrhea. Review of Systems Except as stated in HPI: all other systems reviewed are Neg Past Family Social History Past Medical History Hypertension Left hemisphere CVA Arthritic pains . Past Surgical History Bilateral tubal ligation following fifth . Reported Medications Reported Meds & Active Scripts Active Aspirin Low Strength (Aspirin) 81 Mg Chew 162 Mg PO DAILY Norvasc (Amlodipine Besylate) 5 Mg Tab 2.5 Mg PO DAILY Ibuprofen as needed . Allergies: Coded Allergies: No Known Allergies (Unverified , 02/03/17) Family History Denies family history of CVA or CAD . Social History Tobacco: Denies ever smoking Alcohol: Occasional social alcohol use Illicit Drugs: Denies . Physical Exam Vital Signs Vital Signs Date Time Temp Pulse Resp B/P (MAP) Pulse Ox O2 Delivery O2 Flow Rate FiO2 08/18/17 19:29 98.0 72 18 148/78 (101) 100 Room Air 08/18/17 17:03 98.4 75 18 155/98 (117) 100 Room Air 08/18/17 17:03 61 18 100 Room Air 08/18/17 15:17 97.9 71 22 136/86 (103) 100 Physical Exam Constitutional: This is a pleasant, adequately nourished female patient, who appears painful. SKIN: No rashes, ecchymoses or lesions. Cool and dry. HEAD: Atraumatic. Normocephalic. EYES: No scleral icterus. No injection or drainage. ENT: Nose without bleeding, purulent drainage. NECK: Trachea midline. No JVD or lymphadenopathy. CARDIOVASCULAR: Regular rate and rhythm without murmurs, gallops, or rubs. RESPIRATORY: Clear to auscultation. Breath sounds equal bilaterally. No wheezes , rales, or rhonchi. GASTROINTESTINAL: Abdomen soft, non-tender, nondistended. No guarding. MUSCULOSKELETAL: Extremities without clubbing, cyanosis, or edema. left upper extremity strength examination is limited by shoulder pain; otherwise strength is equal in all other extremities. NEUROLOGICAL: Awake and alert. Motor and sensory grossly within normal limits - however left upper extremity examination is limited by shoulder pain. Normal speech. . Laboratory Laboratory Tests Test 08/18/17 17:08 White Blood Count 5.6 Red Blood Count 5.31 Hemoglobin 15.1 Hematocrit 44.9 Mean Corpuscular Volume 84.6 Mean Corpuscular Hemoglobin 28.3 Mean Corpuscular Hemoglobin Concent 33.5 Red Cell Distribution Width 15.1 Platelet Count 187 Mean Platelet Volume 9.2 Neutrophils (%) (Auto) 51.3 Lymphocytes (%) (Auto) 36.1 Monocytes (%) (Auto) 10.7 Eosinophils (%) (Auto) 1.6 Basophils (%) (Auto) 0.3 Neutrophils # (Auto) 2.9 Lymphocytes # (Auto) 2.0 Monocytes # (Auto) 0.6 Eosinophils # (Auto) 0.1 Basophils # (Auto) 0.0 CBC Comment AUTO DIFF Differential Comment AUTO DIFF CONFIRMED Platelet Estimate NORMAL Platelet Morphology Comment ENLARGED Prothrombin Time 10.4 Prothromb Time International Ratio 1.0 Activated Partial Thromboplast Time 23.9 Blood Urea Nitrogen 11 Creatinine 0.78 Random Glucose 84 Total Protein 7.7 Albumin 3.5 Calcium Level 9.1 Alkaline Phosphatase 77 Aspartate Amino Transf (AST/SGOT) 26 Alanine Aminotransferase (ALT/SGPT) 53 Total Bilirubin 0.4 Sodium Level 143 Potassium Level 4.3 Chloride Level 107 Carbon Dioxide Level 29.9 Anion Gap 6 Estimat Glomerular Filtration Rate 90 Total Creatine Kinase 96 Troponin I 0.06 Result Diagram: 08/18/17 1708 08/18/17 1708 Imaging Last Impressions Head CT 08/18/17 1521 Signed Impressions: Service Date/Time: Friday, August 18, 2017 15:59 - CONCLUSION: 1. Mild ventricular dilatation with chronic ischemic white matter changes. 2. No evidence of acute infarct, hemorrhage, mass or edema. Nirav Correa MD Chest X-Ray 08/18/17 0000 Signed Impressions: Service Date/Time: Friday, August 18, 2017 15:45 - CONCLUSION: 1. No active disease. Ramana Woods MD Caprini VTE Risk Assessment Caprini VTE Risk Assessment: Mod/High Risk (score >= 2) Caprini Risk Assessment Model Point Value = 1 Point Value = 2 Point Value = 3 Point Value = 5 Age 41-60 Minor surgery BMI > 25 kg/m2 Swollen legs Varicose veins or History of unexplained or recurrent spontaneous Oral contraceptives or hormone replacement Sepsis (< 1 month) Serious lung disease, including pneumonia (< 1 month) Abnormal pulmonary function Acute myocardial infarction Congestive heart failure (< 1 month) History of inflammatory bowel disease Medical patient at bed rest Age 61-74 Arthroscopic surgery Major open surgery (> 45 min) Laparoscopic surgery (> 45 min) Malignancy Confined to bed (> 72 hours) Immobilizing plaster cast Central venous access Age >= 75 History of VTE Family history of VTE Factor V Leiden Prothrombin [id number] Lupus anticoagulant Anticardiolipin antibodies Elevated serum homocysteine Heparin-induced thrombocytopenia Other congenital or acquired thrombophilia Stroke (< 1 month) Elective arthroplasty Hip, pelvis, or leg fracture Acute spinal cord injury (< 1 month) Prophylaxis Regimen Total Risk Factor Score Risk Level Prophylaxis Regimen 0-1 Low Early ambulation 2 Moderate Order ONE of the following: *Sequential Compression Device (SCD) *Heparin 5000 units SQ BID 3-4 Higher Order ONE of the following medications: *Heparin 5000 units SQ TID *Enoxaparin/Lovenox 40 mg SQ daily (WT < 150 kg, CrCl > 30 mL/min) *Enoxaparin/Lovenox 30 mg SQ daily (WT < 150 kg, CrCl > 10-29 mL/min) *Enoxaparin/Lovenox 30 mg SQ BID (WT < 150 kg, CrCl > 30 mL/min) AND/OR *Sequential Compression Device (SCD) 5 or more Highest Order ONE of the following medications: *Heparin 5000 units SQ TID (Preferred with Epidurals) *Enoxaparin/Lovenox 40 mg SQ daily (WT < 150 kg, CrCl > 30 mL/min) *Enoxaparin/Lovenox 30 mg SQ daily (WT < 150 kg, CrCl > 10-29 mL/min) *Enoxaparin/Lovenox 30 mg SQ BID (WT < 150 kg, CrCl > 30 mL/min) AND *Sequential Compression Device (SCD) Assessment and Plan Problem List: (1) Elevated troponin I level ICD Code: R74.8 - Abnormal levels of other serum enzymes (2) Leg pain, right ICD Code: M79.604 - Pain in right leg (3) Atypical chest pain ICD Code: R07.89 - Other chest pain Assessment and Plan Ms. Harris is a 62 y/o female from [place] with history of left hemisphere CVA who presented to the ER on 08/17/2017 complaining of right lower extremity pain. Workup revealed mildly elevated troponin at 0.06 and she is admitted to the hospitalist service for ACS rule out and TIA workup. Right lower extremity pain with mild paresthesias in a patient with a history of CVA -We will check Doppler ultrasound of right lower extremity to rule out DVT -We will also check MRI of lumbar spine for possible etiologies -Head CT mild ventricular dilatation with chronic ischemic white matter changes. No evidence of acute infarct, hemorrhage, mass, or edema. -We will check MRI and MRA of brain along with ultrasound of carotid arteries -We will check carotid ultrasound to rule out carotid artery stenosis -Check 2D echocardiogram to evaluate cardiac structure and function -Consult neurology- appreciate assistance -Frequent neuro checks -NIH stroke scale daily -Morphine 2 mg IV every 3 hours as needed for pain greater than 4 Atypical chest pain Elevated troponin I -Initial troponin I was 0.06 -will continue to trend cardiac enzymes to rule out ACS along with EKGs -initial EKG reviewed and it showed some mild septal ST elevation -will continue to follow serial EKGs and trends -Nitroglycerin sublingual as needed for chest pain -Continuous cardiac telemetry to monitor for arrhythmias DVT prophylaxis. -Will initiate as soon as his brain MRI and right lower extremity ultrasound results are available for review - MRI negative for acute infarct, RLE u/s negative for DVT - initiate Lovenox 40 mg subq q24h Discussed Condition With Patient and Dr. Chin . Oliva Lawson Aug 18, 2017 20:10
[2017-08-18] MEDS: SODIUM CHLORIDE 0.9% FLUSH 10 ML FLUSH IV FLUSH SCH (20:59)
[2017-08-18] MEDS ORDERED: MORPHINE SULFATE 2 MG/ML INJ IV PUSH PRN (21:00)
[2017-08-18] MEDS ORDERED: NITROGLYCERIN 0.4 MG SL 25 TABS/BTL SL PRN (21:15)
--- NOTE | 2017-08-18 21:50 | RADRPT ---
EXAM DATE/TIME: 08/18/2017 20:51 [facility] COMPARISON: MRI BRAIN W/O CONTRAST, August 18, 2017, 20:51. INDICATIONS : Stroke. MEDICAL HISTORY : Stroke Hypertension. SURGICAL HISTORY : Tubal ligation. ENCOUNTER: Initial ACUITY: 1 day PAIN SCORE: 5/10 LOCATION: Right cranial Please note a normal MRA of the brain does not entirely exclude the possibility of a small aneurysm, nor the possibility of distal intracranial vessel disease. TECHNIQUE: 3D time of flight MRA was performed. Source images, multiplanar STS MIP, and 3D volume MIP reconstru ctions were reviewed. FINDINGS: There is excellent visualization of the major intracranial arteries out to the second-order branch ve ssels. There is no evidence for aneurysm, vessel truncation or stenosis, and no evidence for vascula r malformation. There is asymmetry in A1 segments anterior cerebral arteries with the right A1 segmen t appears small. The A2 segments are symmetric secondary to a patent anterior communicating artery. CONCLUSION: Negative MRA of the head. There is normal variant anatomy as described above. Trae Kahn MD on August 18, 2017 at 21:47 Board Certified Radiologist. This report was verified electronically.
--- NOTE | 2017-08-18 21:51 | RADRPT ---
EXAM DATE/TIME: 08/18/2017 20:51 [facility] COMPARISON: No previous studies available for comparison. INDICATIONS : Stroke. Right sided weakness. MEDICAL HISTORY : Stroke Hypertension. SURGICAL HISTORY : Tubal ligation. ENCOUNTER: Initial ACUITY: 1 day PAIN SCORE: 3/10 LOCATION: Right cranial TECHNIQUE: Multiplanar, multisequence MRI of the brain was performed without contrast. FINDINGS: CEREBRUM: The ventricles are normal for age. No evidence of midline shift, mass lesion, hemorrhage or acute in farction. No extraaxial fluid collections are seen. The pituitary gland and suprasellar cistern are normal in configuration. WHITE MATTER: There is widespread focal and confluent areas of increased signal seen throughout the cerebral white matter. POSTERIOR FOSSA: The cerebellum and brainstem are intact. The 4th ventricle is midline. The cerebellopontine angle is unremarkable. The cerebellar tonsils are normal in position. DIFFUSION IMAGING: No focal areas of restricted diffusion are seen. No evidence of acute infarction. EXTRACRANIAL: The visualized portions of the orbits and paranasal sinuses are unremarkable. CONCLUSION: 1. No acute abnormality is seen. No abnormality seen on the diffusion-weighted images to suggest acut e infarction. 2. Widespread demyelination likely from small vessel ischemic change. Trae Kahn MD on August 18, 2017 at 21:49 Board Certified Radiologist. This report was verified electronically.
--- NOTE | 2017-08-18 22:20 | RADRPT ---
EXAM DATE/TIME: 08/18/2017 20:51 [facility] COMPARISON: CTA THORACIC ABDOMINAL AORTA W 3D RECON, February 03, 2017, 12:26. INDICATIONS : Pain with right sided weakness. MEDICAL HISTORY : Stroke Hypertension. SURGICAL HISTORY : Tubal ligation. ENCOUNTER: Initial ACUITY: 1 day PAIN SCORE: 4/10 LOCATION: Right leg TECHNIQUE: Multiplanar multisequence MRI of the lumbar spine was performed without contrast. FINDINGS: The most caudal appearing lumbar vertebra is numbered as L5. VERTEBRAE: Homogeneous signal. Normal alignment. CONUS: Normal level and configuration. OTHER: There is a cystic area is seen anterior to the T10-T12 levels seen on the sagittal images. This measu res 4.2 cm in height and 1.7 cm in AP dimension. This is seen in the retrocrural area are prior CTA. T12-L1: The thecal sac has a normal diameter. No evidence of disc bulge or protrusion. The neural foramina are patent bilaterally. L1-L2: The thecal sac has a normal diameter. No evidence of disc bulge or protrusion. The neural foramina are patent bilaterally. L2-L3: The thecal sac has a normal diameter. No evidence of disc bulge or protrusion. The neural foramina are patent bilaterally. L3-L4: The thecal sac has a normal diameter. No evidence of disc bulge or protrusion. The neural foramina are patent bilaterally. L4-L5: The thecal sac has a normal diameter. No evidence of disc bulge or protrusion. The neural foramina are patent bilaterally. There is mild facet hypertrophy. L5-S1: There is mild diffuse disc bulge. There is severe facet hypertrophy. The disc and facet changes lead to mild narrowing of the thecal sac especially at the lateral recess regions. The neural foramina are patent bilaterally. CONCLUSION: 1. Mild disc bulge and severe facet hypertrophy at the L5-S1 level leading to mild spinal stenosis. T his most prominently affects the lateral recess regions and the S1 nerve roots. 2. Persistent cystic area in the posterior mediastinum/retrocrural region at the lower chest at the T 10-T12 levels. Trae Kahn MD on August 18, 2017 at 22:14 Board Certified Radiologist. This report was verified electronically.
--- NOTE | 2017-08-18 22:58 | RADRPT ---
EXAM DATE/TIME: 08/18/2017 21:55 [facility] COMPARISON: No previous studies available for comparison. INDICATIONS : Transient ischemic attack. MEDICAL HISTORY : Hypertension. Cerebrovascualar accident. SURGICAL HISTORY : Tubal ligation. ENCOUNTER: Initial ACUITY: 1 day PAIN SCORE: 0/10 LOCATION: Bilateral neck PEAK SYSTOLIC VELOCITIES (cm/sec): ICA/CCA RATIO: Right: 1.4 Left: 1.6 ICA: Right: 78 Left: 92 CCA: Right: 56 Left: 57 ECA: Right: 55 Left: 33 VERTEBRAL: Right: 21 antegrade Left: 40 antegrade Elevated flow velocities and ICA/CCA ratios have been found to correlate with increased degrees of vessel stenosis, calculated as percentage of diameter relative to a normal segment of distal ICA/CCA FINDINGS: RIGHT CAROTID: Minimal plaque is seen at the carotid bulb region. No significant stenosis is visualized. The wavefo nelson are within normal limits. LEFT CAROTID: Minimal plaque is seen at the carotid bulb region No significant stenosis is visualized. The wavefor ms are within normal limits. VERTEBRAL ARTERIES: Antegrade flow is seen in both vertebral arteries. MISCELLANEOUS: None. CONCLUSION: Minimal plaque at the carotid bulb regions being more prominent on the left. Significant stenosis is not seen. Trae Kahn MD on August 18, 2017 at 22:55 Board Certified Radiologist. This report was verified electronically.
--- NOTE | 2017-08-18 23:27 | RADRPT ---
EXAM DATE/TIME: 08/18/2017 22:39 [facility] COMPARISON: No previous studies available for comparison. INDICATIONS : Right leg pain. MEDICAL HISTORY : Hypertension. Cerebrovascualar accident. SURGICAL HISTORY : Tubal ligation. ENCOUNTER: Initial ACUITY: 1 day PAIN SCORE: 2/10 LOCATION: Right leg. TECHNIQUE: Venous ultrasound of the leg was performed from the inguinal ligament to the proximal calf. Real-ky e, color Doppler and spectral tracing, compression and augmentation techniques were used. FINDINGS: There is normal compressibility of the deep venous system from the inguinal region to the proximal ca lf. No echogenic clot is seen in the lumen of the common femoral, femoral, popliteal, and posterior tibial veins. There is a normal response of the venous system to proximal and distal augmentation an d respiration. CONCLUSION: No DVT right leg. Hector Esposito MD on August 18, 2017 at 23:24 Board Certified Radiologist. This report was verified electronically.
[2017-08-18 23:47] VITALS: BP 134/91; PULSE 75; RESP 14; TEMP 97.6; O2SAT 97
[2017-08-19] VITALS (9 sets, daily range): BP systolic 124–158; BP diastolic 81–98; PULSE 57–79; RESP 14–18; TEMP 97.6–98.5; O2SAT 98–100
[2017-08-19] MEDS ORDERED: ENOXAPARIN SODIUM 40 MG/0.4 ML SYRINGE SQ SCH (00:30)
[2017-08-19] MEDS: ENOXAPARIN SODIUM 40 MG/0.4 ML SYRINGE SQ SCH ×2 (00:44→20:26)
[2017-08-19 01:37] LABS: TROPONIN I 0.06 NG/ML (0.02-0.05)
[2017-08-19 09:21] LABS: PHENYTOIN (DILANTIN) 0.7 MCG/ML (10.0-20.0)
[2017-08-19 09:24] LABS: TROPONIN I 0.05 NG/ML (0.02-0.05)
[2017-08-19] MEDS: SODIUM CHLORIDE 0.9% FLUSH 10 ML FLUSH IV FLUSH SCH ×2 (10:10→20:26)
--- NOTE | 2017-08-19 10:24 | HHI.PR ---
Subjective Remarks Follow up on patient with possible TIA. Patient seen and examined. Patient states she feels well today. She states her right leg numbness is much improved. States she did well with physical therapy today. She reports bilateral shoulder pain which has been ongoing for several weeks after work- related injury. She denies any complaints of chest pain or shortness of breath. She denies any headache, vision changes or dizziness. She denies any new onset weakness. She denies any bowel or bladder difficulties. Objective Vitals Vital Signs Date Time Temp Pulse Resp B/P (MAP) Pulse Ox O2 Delivery O2 Flow Rate FiO2 08/19/17 08:03 98.0 64 18 144/94 (111) 100 08/19/17 07:46 69 08/19/17 05:02 97.6 57 14 124/81 (95) 98 08/19/17 00:55 66 08/18/17 23:47 97.6 75 14 134/91 (105) 97 08/18/17 19:29 98.0 72 18 148/78 (101) 100 Room Air 08/18/17 17:03 98.4 75 18 155/98 (117) 100 Room Air 08/18/17 17:03 61 18 100 Room Air 08/18/17 15:17 97.9 71 22 136/86 (103) 100 Result Diagram: 08/18/17 1708 08/18/17 1708 Imaging Last Impressions Head CT 08/18/17 1521 Signed Impressions: Service Date/Time: Friday, August 18, 2017 15:59 - CONCLUSION: 1. Mild ventricular dilatation with chronic ischemic white matter changes. 2. No evidence of acute infarct, hemorrhage, mass or edema. Nirav Correa MD Lumbar Spine MRI 08/18/17 0000 Signed Impressions: Service Date/Time: Friday, August 18, 2017 20:51 - CONCLUSION: 1. Mild disc bulge and severe facet hypertrophy at the L5-S1 level leading to mild spinal stenosis. This most prominently affects the lateral recess regions and the S1 nerve roots. 2. Persistent cystic area in the posterior mediastinum/ retrocrural region at the lower chest at the T10-T12 levels. Trae Kahn MD Lower Extremity Ultrasound 08/18/17 0000 Signed Impressions: Service Date/Time: Friday, August 18, 2017 22:39 - CONCLUSION: No DVT right leg. Hector Esposito MD Head Magnetic Resonance Angiography 08/18/17 0000 Signed Impressions: Service Date/Time: Friday, August 18, 2017 20:51 - CONCLUSION: Negative MRA of the head. There is normal variant anatomy as described above. Trae Kahn MD Chest X-Ray 08/18/17 0000 Signed Impressions: Service Date/Time: Friday, August 18, 2017 15:45 - CONCLUSION: 1. No active disease. Ramana Woods MD Carotid Artery Ultrasound 08/18/17 0000 Signed Impressions: Service Date/Time: Friday, August 18, 2017 21:55 - CONCLUSION: Minimal plaque at the carotid bulb regions being more prominent on the left. Significant stenosis is not seen. Trae Kahn MD Brain MRI 08/18/17 0000 Signed Impressions: Service Date/Time: Friday, August 18, 2017 20:51 - CONCLUSION: 1. No acute abnormality is seen. No abnormality seen on the diffusion-weighted images to suggest acute infarction. 2. Widespread demyelination likely from small vessel ischemic change. Trae Kahn MD Objective Remarks GENERAL: Well-nourished, well-developed female patient in [facility]. Awake and alert. Lying in hospital bed. Appears comfortable. No facial droop. SKIN: Warm and dry. No rash. HEAD: Normocephalic. Atraumatic. EYES: EOMI. No scleral icterus. No injection or drainage. ENT: No nasal bleeding or discharge. Mucous membranes pink and moist. NECK: Supple. Trachea midline. CARDIOVASCULAR: Regular rate and rhythm. S1, S2 noted. No murmur appreciated. RESPIRATORY: Nonlabored. Clear to auscultation. Breath sounds equal bilaterally. GASTROINTESTINAL: Abdomen soft, non-tender, nondistended. Normoactive bowel sounds x4. MUSCULOSKELETAL: No obvious deformities. Extremities without clubbing, cyanosis , or edema. Tenderness to palpation bilateral shoulders with decreased ROM. NEUROLOGICAL: Awake and alert. Normal speech. 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 Normal speech. PSYCHIATRIC: Appropriate mood and affect; insight and judgment normal. Medications and IVs Current Medications Medications (Trade) Dose Ordered Sig/Perry Route Start Time Stop Time Status Last Admin (NS Flush) 2 ml BID IV FLUSH 08/18/17 21:00 08/19/17 10:10 (NS Flush) 2 ml UNSCH PRN IV FLUSH 08/18/17 19:30 (D50w (Vial) Inj) 50 ml UNSCH PRN IV PUSH 08/18/17 19:30 (Glucagon Inj) 1 mg UNSCH PRN OTHER 08/18/17 19:30 (Morphine Inj) 2 mg Q3H PRN IV PUSH 08/18/17 21:00 (Nitrostat Sl) 0.4 mg Q5M PRN SL 08/18/17 21:15 (Lovenox Inj) 40 mg DAILY@2100 SQ 08/18/17 23:30 08/19/17 00:44 A/P Problem List: (1) Elevated troponin I level ICD Code: R74.8 - Abnormal levels of other serum enzymes (2) Leg pain, right ICD Code: M79.604 - Pain in right leg (3) Atypical chest pain ICD Code: R07.89 - Other chest pain Assessment and Plan Ms. Harris is a 62 y/o female from [place] with history of left hemisphere CVA who presented to the ER on 08/17/2017 complaining of right lower extremity pain. Workup revealed mildly elevated troponin at 0.06 and she is admitted to the hospitalist service for ACS rule out and TIA workup. Right lower extremity pain with mild paresthesias in a patient with a history of CVA, improved -Doppler ultrasound of right lower extremity negative for DVT -MRI of lumbar spine shows mild disc bulge with severe facet arthropathy at L5- S1 with resultant mild spinal stenosis. -Head CT mild ventricular dilatation with chronic ischemic white matter changes. No evidence of acute infarct, hemorrhage, mass, or edema. -MRI shows widespread demyelination c/w small vessel dz -MRA of brain negative -Carotid US shows minimal plaque -2D echocardiogram to evaluate cardiac structure and function - pending -Consult neurology- appreciate assistance - doubt this is stroke, obtain MRI right shoulder, continue aspirin, PT -Frequent neuro checks -NIH stroke scale daily -Morphine 2 mg IV every 3 hours as needed for pain greater than 4 -PT/OT Bilateral shoulder pain -has ongoing Worker's Comp. claim in regards to the right shoulder, recent MRI done as outpatient -also reports injuring her left shoulder at the same time Atypical chest pain, right sided/flank area, resolved Elevated troponin I -initial EKG reviewed and it showed some mild septal ST elevation -will continue to follow serial EKGs and trends -serial trops 0.06 -> 0.06 -> 0.05 -Consult cardiology -Nitroglycerin sublingual as needed for chest pain -Continuous cardiac telemetry to monitor for arrhythmias DVT prophylaxis -Lovenox 40mg sq Discharge Planning Discharge pending completion of workup and Neurology and Cardiology clearance Haley Manzanares Aug 19, 2017 10:24
--- NOTE | 2017-08-19 10:45 | MB ---
cc: Marleni Macedo MD DATE: 08/19/2017 REASON FOR CONSULTATION: Possible TIA. HISTORY OF PRESENT ILLNESS: This 62-year-old woman comes in apparently on the with some right lower extremity pain. She states that she was working and lifted a table and hurt her right shoulder on the of this month, had an MRI of the right shoulder at [place] on [facility] she states and has not had the results. She lifted a table and she did feel a severe pain in the shoulder. She does not tell me that her arm went flaccid or her leg, does not have any speech issues. PAST MEDICAL HISTORY: She has a history of hypertension, history of a stroke in the past with left hemispheric, osteoarthritis. PAST SURGICAL HISTORY: Tubal ligation. HOME MEDICATIONS: 1. Baby aspirin. 2. Norvasc. 3. Ibuprofen p.r.n. ALLERGIES: NONE REPORTED. SOCIAL HISTORY: No smoking. Very rarely drinks. No illicit drugs. PHYSICAL EXAMINATION: VITAL SIGNS: Stable. Temperature is 98, pulse 64, respiratory rate 18, blood pressure 144/94, sating at 100%. NECK: Supple. No appreciable bruit. HEART: Regular. NEUROLOGIC: She is awake, alert. She is fluent. Pupils reactive. Visual sosa full. Face symmetrical. Tongue midline. Motor: She does have pain in the right shoulder, but does not have an obvious drift. No leg lag. 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 Sensory is normal. Toes withdraw. DTRs are 1+. Cerebellar intact. Gait is withheld. LABORATORY DATA: Reviewed. Troponin is 0.06, 0.06 and 0.05. Hemoglobin A1c is pending. Toxicology: Apparently there is a Dilantin level 0.7. No mention of why that is done. I do not see any mention of any seizures looking back in the old chart; it looks like she was back here in January of last year with some anxiety. Had had elevated troponin at that time. Cardiology had seen her. IMAGING STUDIES: MRI brain shows no acute disease. Widespread white matter ischemic changes. Carotid ultrasound: Minimal plaque, but more on the left, but no hemodynamic significant stenosis. MRA [place] was unremarkable except a variant anatomy. LS MRI shows mild disk bulge, severe facet hypertrophy L5-S1 with mild canal stenosis. This mostly prominently affects the lateral recess regions and the S1 nerve roots. Cystic region in T10-12. Lower extremity ultrasound: No DVT on the right. Chest x-ray: No active disease. IMPRESSION AND PLAN: Doubt this is a stroke. Right shoulder pain. She had an MRI at [place]. I will try to obtain that. Imaging has been negative. Her echo is pending. Continue her aspirin therapy, get her out of bed with physical therapy and tried to obtain the MRI report for her right shoulder if possible and discharge planning if all workup is negative. MD STEVIE Veliz/NANCY , 10:20 AM , 10:44 AM
[2017-08-19] MEDS ORDERED: amLODIPine BESYLATE 5 MG TAB PO ONE (12:30)
[2017-08-19] MEDS ORDERED: PILL SPLITTER OTHER PRN (13:00)
--- NOTE | 2017-08-19 13:32 | ECHRPT ---
Indication: CVA/TIA CONCLUSIONS Normal left ventricular size. Moderate concentric left ventricular hypertrophy. The left ventricular systolic function is mildly reduced with an estimated ejection fraction in the range of 45- 50%. The left atrial size is [id number] dilated. The right atrial size is mildly dilated. No atrial level shunt is demonstrated by color flow Doppler interrogation. Mild mitral valve regurgitation. There is trace tricuspid valve regurgitation. BP: 124 / 81 HR: 57 Rhythm: Sinus MEASUREMENTS (Male / Female) Normal Values Technical Quality:Fair 2D ECHO LV Diastolic Diameter PLAX 3.9 cm 4.2 - 5.9 / 3.9 - 5.3 cm LV Systolic Diameter PLAX 3.1 cm IVS Diastolic Thickness 1.3 cm 0.6 - 1.0 / 0.6 - 0.9 cm LVPW Diastolic Thickness 1.3 cm 0.6 - 1.0 / 0.6 - 0.9 cm LV Relative Wall Thickness 0.7 RV Internal Dim ED PLAX 2.2 cm LVOT Diameter 2.0 cm Aortic Root Diameter 3.0 cm LA Systolic Diameter LX 2.6 cm 3.0 - 4.0 / 2.7 - 3.8 cm M-MODE AV Cusp Separation MM 1.5 cm DOPPLER AV Peak Velocity 128.0 cm/s AV Peak Gradient 6.6 mmHg AV Mean Gradient 3.0 mmHg AV Velocity Time Integral 23.3 cm LVOT Peak Velocity 75.9 cm/s LVOT Peak Gradient 2.3 mmHg LVOT Velocity Time Integral 14.1 cm AV Area Cont Eq vti 1.9 cm AV Area Cont Eq pk 1.9 cm Mitral E Point Velocity 85.9 cm/s Mitral A Point Velocity 33.6 cm/s Mitral E to A Ratio 2.6 LV E' Lateral Velocity 4.7 cm/s Mitral E to LV E' Lateral Ratio 18.4 LV E' Septal Velocity 4.2 cm/s Mitral E to LV E' Septal Ratio 20.5 PV Peak Velocity 43.6 cm/s PV Peak Gradient 0.8 mmHg FINDINGS LEFT VENTRICLE Normal left ventricular size. Mild concentric left ventricular hypertrophy. The left ventricular systolic function is mildly reduced with an estimated ejection fraction in the range of 45- 50%. RIGHT VENTRICLE Normal right ventricular size and systolic function. LEFT ATRIUM The left atrial size is [id number] dilated. RIGHT ATRIUM The right atrial size is mildly dilated. ATRIAL SEPTUM No atrial level shunt is demonstrated by color flow Doppler interrogation. AORTA The aortic root and proximal ascending aorta are not well visualized. MITRAL VALVE Mild mitral valve regurgitation. AORTIC VALVE Trileaflet aortic valve. No aortic valve stenosis or regurgitation. TRICUSPID VALVE There is trace tricuspid valve regurgitation. PULMONARY VALVE No pulmonary valve regurgitation or stenosis. VESSELS The inferior vena cava is normal in size. PERICARDIUM No pericardial effusion. Suresh Truong MD, FACC, [facility] [place] (Electronically Signed) Final Date:19 August 2017 13:31
--- NOTE | 2017-08-19 22:10 | EKG ---
Date Performed: 08/19/2017 Time Performed: 07:01:32 PTAGE: 62 years EKG: Sinus rhythm VOLTAGE CRITERIA FOR LVH POSSIBLE SEPTAL MYOCARDIAL INFARCTION MILD DIFFUSE ST ELEVATION ABNORMAL EC G PREVIOUS TRACING : 08/18/2017 23.41 Since the previous tracing, no significant change noted DOCTOR: Jorge Alicea Interpretating Date/Time 08/19/2017 22:09:40
[2017-08-19 22:22] LABS: HEMOGLOBIN A1C 5.8 % (4.3-6.0)
--- NOTE | 2017-08-19 22:35 | EKG ---
Date Performed: 08/18/2017 Time Performed: 23:41:14 PTAGE: 62 years EKG: Sinus rhythm VOLTAGE CRITERIA FOR LVH POSSIBLE SEPTAL MYOCARDIAL INFARCTION ABNORMAL ECG PREVIOUS TRACING : 08/18/2017 16.53 DOCTOR: Jorge Alicea Interpretating Date/Time 08/19/2017 22:34:18
--- NOTE | 2017-08-19 22:45 | EKG ---
Date Performed: 08/18/2017 Time Performed: 16:53:25 PTAGE: 62 years EKG: Sinus rhythm VOLTAGE CRITERIA FOR LVH POSSIBLE SEPTAL MYOCARDIAL INFARCTION ABNORMAL ECG Since the PREVIOUS TRACING , no significant change noted DOCTOR: Jorge Alicea Interpretating Date/Time 08/19/2017 22:44:53
[2017-08-20] VITALS (7 sets, daily range): BP systolic 137–172; BP diastolic 85–112; PULSE 62–88; RESP 16–20; TEMP 97.8–98.4; O2SAT 98–100
[2017-08-20] MEDS ORDERED: amLODIPine BESYLATE 5 MG TAB PO SCH (09:00)
[2017-08-20] MEDS: SODIUM CHLORIDE 0.9% FLUSH 10 ML FLUSH IV FLUSH SCH ×2 (09:39→20:22)
[2017-08-20] MEDS: ASPIRIN 81 MG CHEW TAB PO SCH (09:40)
--- NOTE | 2017-08-20 10:34 | HHI.PR ---
Subjective Remarks Follow up on patient with possible TIA. Patient seen and examined. Patient denies any new medical complaints. She denies any headache, vision changes or dizziness. She denies any chest pain or shortness of breath. She denies any fever or chills. She denies any nausea, vomiting or abdominal pain. Continues to have bilateral shoulder pain. Discussed with patient echo findings of reduced EF. Patient denies any previous history of CHF. Objective Vitals Vital Signs Date Time Temp Pulse Resp B/P (MAP) Pulse Ox O2 Delivery O2 Flow Rate FiO2 08/20/17 08:37 79 08/20/17 08:20 97.8 65 18 150/90 (110) 99 08/20/17 03:08 98.0 75 16 149/93 (111) 100 08/19/17 23:22 98.5 69 16 141/98 (112) 99 08/19/17 23:00 72 08/19/17 19:45 98.0 79 16 140/92 (108) 99 08/19/17 16:05 98.2 70 18 135/88 (104) 100 08/19/17 12:53 97.6 60 18 158/93 (114) 100 Result Diagram: 08/18/17 1708 08/18/17 1708 Imaging Last Impressions Head CT 08/18/17 1521 Signed Impressions: Service Date/Time: Friday, August 18, 2017 15:59 - CONCLUSION: 1. Mild ventricular dilatation with chronic ischemic white matter changes. 2. No evidence of acute infarct, hemorrhage, mass or edema. Nirav Correa MD Lumbar Spine MRI 08/18/17 0000 Signed Impressions: Service Date/Time: Friday, August 18, 2017 20:51 - CONCLUSION: 1. Mild disc bulge and severe facet hypertrophy at the L5-S1 level leading to mild spinal stenosis. This most prominently affects the lateral recess regions and the S1 nerve roots. 2. Persistent cystic area in the posterior mediastinum/ retrocrural region at the lower chest at the T10-T12 levels. Trae Kahn MD Lower Extremity Ultrasound 08/18/17 0000 Signed Impressions: Service Date/Time: Friday, August 18, 2017 22:39 - CONCLUSION: No DVT right leg. Hector Esposito MD Head Magnetic Resonance Angiography 08/18/17 0000 Signed Impressions: Service Date/Time: Friday, August 18, 2017 20:51 - CONCLUSION: Negative MRA of the head. There is normal variant anatomy as described above. Trae Kahn MD Chest X-Ray 08/18/17 0000 Signed Impressions: Service Date/Time: Friday, August 18, 2017 15:45 - CONCLUSION: 1. No active disease. Ramana Woods MD Carotid Artery Ultrasound 08/18/17 0000 Signed Impressions: Service Date/Time: Friday, August 18, 2017 21:55 - CONCLUSION: Minimal plaque at the carotid bulb regions being more prominent on the left. Significant stenosis is not seen. Trae Kahn MD Brain MRI 08/18/17 0000 Signed Impressions: Service Date/Time: Friday, August 18, 2017 20:51 - CONCLUSION: 1. No acute abnormality is seen. No abnormality seen on the diffusion-weighted images to suggest acute infarction. 2. Widespread demyelination likely from small vessel ischemic change. Trae Kahn MD Objective Remarks GENERAL: Well-nourished, well-developed female patient in NAD. Awake and alert. Sitting up in hospital bed. Appears comfortable. No facial droop. Daughter at bedside. SKIN: Warm and dry. No rash. HEAD: Normocephalic. Atraumatic. EYES: EOMI. No scleral icterus. No injection or drainage. ENT: No nasal bleeding or discharge. Mucous membranes pink and moist. NECK: Supple. Trachea midline. CARDIOVASCULAR: Regular rate and rhythm. S1, S2 noted. No murmur appreciated. RESPIRATORY: Nonlabored. Clear to auscultation. Breath sounds equal bilaterally. GASTROINTESTINAL: Abdomen soft, non-tender, nondistended. Normoactive bowel sounds x4. MUSCULOSKELETAL: No obvious deformities. Extremities without clubbing, cyanosis , or edema. Tenderness to palpation bilateral shoulders with decreased ROM. NEUROLOGICAL: Awake and alert. Normal speech. Motor and sensory function appears to be grossly intact except for some limitation in right die inspector. Normal speech. PSYCHIATRIC: Appropriate mood and affect; insight and judgment normal. Medications and IVs Current Medications Medications (Trade) Dose Ordered Sig/Perry Route Start Time Stop Time Status Last Admin (NS Flush) 2 ml BID IV FLUSH 08/18/17 21:00 08/20/17 09:39 (NS Flush) 2 ml UNSCH PRN IV FLUSH 08/18/17 19:30 (D50w (Vial) Inj) 50 ml UNSCH PRN IV PUSH 08/18/17 19:30 (Glucagon Inj) 1 mg UNSCH PRN OTHER 08/18/17 19:30 (Morphine Inj) 2 mg Q3H PRN IV PUSH 08/18/17 21:00 (Nitrostat Sl) 0.4 mg Q5M PRN SL 08/18/17 21:15 (Lovenox Inj) 40 mg DAILY@2100 SQ 08/18/17 23:30 08/19/17 20:26 (Aspirin Chew) 162 mg DAILY PO 08/20/17 09:00 08/20/17 09:40 (Pill Splitter) 1 ea UNSCH PRN OTHER 08/19/17 13:00 (Norvasc) 5 mg DAILY PO 08/21/17 09:00 A/P Problem List: (1) Elevated troponin I level ICD Code: R74.8 - Abnormal levels of other serum enzymes (2) Leg pain, right ICD Code: M79.604 - Pain in right leg (3) Atypical chest pain ICD Code: R07.89 - Other chest pain Assessment and Plan Ms. Harris is a 62 y/o female from [place] with history of left hemisphere CVA who presented to the ER on 08/17/2017 complaining of right lower extremity pain. Workup revealed mildly elevated troponin at 0.06 and she is admitted to the hospitalist service for ACS rule out and TIA workup. Right lower extremity pain with mild paresthesias in a patient with a history of CVA, improved -Doppler ultrasound of right lower extremity negative for DVT -MRI of lumbar spine shows mild disc bulge with severe facet arthropathy at L5- S1 with resultant mild spinal stenosis. -Head CT mild ventricular dilatation with chronic ischemic white matter changes. No evidence of acute infarct, hemorrhage, mass, or edema. -MRI shows widespread demyelination c/w small vessel dz -MRA of brain negative -Carotid US shows minimal plaque -2D echocardiogram shows dilated atrium and EF 45-50% -Consult neurology- appreciate assistance - doubt this is stroke, obtain MRI right shoulder results, continue aspirin, PT -Frequent neuro checks -NIH stroke scale daily Bilateral shoulder pain -has ongoing Worker's Comp. claim in regards to the right shoulder, recent MRI done as outpatient -also reports injuring her left shoulder at the same time Atypical chest pain, right sided/flank area, resolved Elevated troponin I -EKG shows some mild septal ST elevation -serial trops 0.06 -> 0.06 -> 0.05 -Evaluated by cardiology, no additional cardiac evaluation at this time. Cleared for discharge from cardiac standpoint. -Nitroglycerin sublingual as needed for chest pain -Continuous cardiac telemetry to monitor for arrhythmias Systolic CHF, not in acute exacerbation, new diagnosis 2D echocardiogram shows dilated atrium and EF 45-50% -start on ACEI and BB -CHF teaching -Cardiology consulted DVT prophylaxis -Lovenox 40mg sq Discharge patient to home Condition on discharge: Improved Heart healthy low salt Diet as tolerated Ad Maris activity Rx written: Lisinopril, Metoprolol and Lipitor Follow-up with primary care physician, neurology and cardiology Discharge Planning Discharge pending Neurology clearance Haley Manzanares Aug 20, 2017 10:34
[2017-08-20 13:25] LABS: CHOLESTEROL/ HDL RATIO 3.43 RATIO; HDL CHOLESTEROL 47.5 MG/DL (40.0-60.0)
--- NOTE | 2017-08-20 13:37 | MB ---
cc: James Grande MD DATE: 08/20/2017 REASON FOR CONSULTATION: Abnormal troponin, chest pain. HISTORY OF PRESENT ILLNESS: The patient is a 62-year-old [place] female with a history of CVA in 2011, history of medical noncompliance, hypertension, who initially presented to the hospital mainly with complaints of right lateral thigh and right calf pain. Because of her previous stroke, she became concerned, so she came to the emergency department for further evaluation and treatment. Workup has suggested that she has not sustained another stroke. At some point, she related a history of chest pain. The patient states 2 days ago, she may have experienced a right parasternal sharp chest pain, which lasted a few minutes, possibly associated with shortness of breath, without nausea or diaphoresis. She denies any other episodes of chest discomfort. The patient also denies pleurisy, lightheadedness, syncope, near-syncope, palpitations, pedal edema, paroxysmal nocturnal dyspnea. At times over the last couple of days she has felt nauseated for a few minutes episodically. PAST MEDICAL HISTORY: 1. Cerebrovascular accident in 2011. 2. Hypertension. PAST SURGICAL HISTORY: Tubal ligation. CARDIAC MEDICATIONS: 1. Norvasc 2.5 mg daily. 2. Aspirin 162 mg daily. ALLERGIES: NO KNOWN DRUG ALLERGIES. FAMILY HISTORY: There is no significant family history of early myocardial infarction. SOCIAL HISTORY: The patient denies any history of alcohol or tobacco abuse. REVIEW OF SYSTEMS: As in the history of present illness, otherwise negative or noncontributory. She also denies headache, visual changes, unilateral weakness, abdominal pain, melena, dyspepsia. PHYSICAL EXAMINATION: VITAL SIGNS: Blood pressure 137/92 with a pulse of 83, respirations 18. GENERAL: She is a well-developed, thin [place] female in no acute distress. HEENT/NECK: Jugular venous pressure is normal. Carotid pulses are 2+ bilaterally and without bruits. CHEST: Examination reveals clear lungs sosa. CARDIAC: She has a regular rhythm and rate with an S4, S1, S2. No definite murmur is audible. ABDOMEN: She has a soft, nontender abdomen. Bowel sounds are present. There is no definite hepatosplenomegaly. EXTREMITIES: Examination reveals no clubbing, cyanosis, or edema. LABORATORY DATA: EKG from 08/18/2017 at 4:53 p.m. shows sinus rhythm, voltage criteria for left ventricular hypertrophy, nonspecific ST abnormalities, no change from an EKG 01/2017. LABORATORY DATA: Includes normal CBC. Normal basic metabolic profile. CK of 96. Troponin 0.06. Chest x-ray shows no acute disease. IMPRESSION: Single episode of very atypical right-sided chest pain a couple days ago, minimally abnormal troponin level in this 62-year-old [facility] female with a history of cerebrovascular accident, hypertension, initially presenting with right lower extremity pain. I highly doubt the slight elevation in troponin levels is due to acute coronary syndrome. Electrocardiogram shows no acute changes from electrocardiograms in January 2017. Creatine kinase levels are negative for myocardial infarction. She had similar and even slightly higher troponin levels back in January 2017. Echocardiogram does reveal fairly severe left ventricular hypertrophy with low-normal left ventricular systolic function. RECOMMENDATIONS: Given the very low pretest probability that her symptoms are due to severe coronary artery disease, would not recommend any additional cardiac evaluation at this time. MD CELESTINO Espinoza/SB , 01:19 PM , 01:36 PM ANAHI
[2017-08-20] MEDS ORDERED: METO25TA3 PO (15:49)
[2017-08-20] MEDS ORDERED: ATOR10TA15 PO (15:49)
[2017-08-20] MEDS ORDERED: LISI-519 PO (15:49)
[2017-08-20] MEDS: METOPROLOL TARTRATE 25 MG TAB PO SCH (20:22)
[2017-08-20] MEDS: ENOXAPARIN SODIUM 40 MG/0.4 ML SYRINGE SQ SCH (20:22)
[2017-08-21 01:53] VITALS: PULSE 61
[2017-08-21 03:33] VITALS: BP 160/97; PULSE 80; RESP 18; TEMP 97.9; O2SAT 96
[2017-08-21 04:56] VITALS: PULSE 60
[2017-08-21 07:43] VITALS: PULSE 69
[2017-08-21 07:50] VITALS: BP 137/83; PULSE 70; RESP 18; TEMP 97.9; O2SAT 100
--- NOTE | 2017-08-21 08:20 | HHI.PR ---
Subjective Remarks Follow up on patient with possible TIA. Patient seen and examined. Patient states she feels well. She is hoping to be discharged today. She denies any headache, dizziness or vision changes. Denies any chest pain or shortness of breath. She denies any fever or chills. Denies any nausea vomiting or abdominal pain. Objective Vitals Vital Signs Date Time Temp Pulse Resp B/P (MAP) Pulse Ox O2 Delivery O2 Flow Rate FiO2 08/21/17 07:50 97.9 70 18 137/83 (101) 100 08/21/17 07:43 69 08/21/17 04:56 60 08/21/17 03:33 97.9 80 18 160/97 (118) 96 08/21/17 01:53 61 08/20/17 23:25 98.1 62 20 146/85 (105) 98 08/20/17 20:24 98.3 88 18 172/112 (132) 99 08/20/17 16:14 98.4 75 18 150/93 (112) 99 08/20/17 11:23 98.2 83 18 137/92 (107) 98 08/20/17 08:37 79 08/20/17 08:20 97.8 65 18 150/90 (110) 99 Result Diagram: 08/18/17 1708 08/18/17 1708 Imaging Last Impressions Head CT 08/18/17 1521 Signed Impressions: Service Date/Time: Friday, August 18, 2017 15:59 - CONCLUSION: 1. Mild ventricular dilatation with chronic ischemic white matter changes. 2. No evidence of acute infarct, hemorrhage, mass or edema. Nirav Correa MD Lumbar Spine MRI 08/18/17 0000 Signed Impressions: Service Date/Time: Friday, August 18, 2017 20:51 - CONCLUSION: 1. Mild disc bulge and severe facet hypertrophy at the L5-S1 level leading to mild spinal stenosis. This most prominently affects the lateral recess regions and the S1 nerve roots. 2. Persistent cystic area in the posterior mediastinum/ retrocrural region at the lower chest at the T10-T12 levels. Trae Kahn MD Lower Extremity Ultrasound 08/18/17 0000 Signed Impressions: Service Date/Time: Friday, August 18, 2017 22:39 - CONCLUSION: No DVT right leg. Hector Esposito MD Head Magnetic Resonance Angiography 08/18/17 Signed Impressions: Service Date/Time: Friday, August 18, 2017 20:51 - CONCLUSION: Negative MRA of the head. There is normal variant anatomy as described above. Trae Kahn MD Chest X-Ray 08/18/17 Signed Impressions: Service Date/Time: Friday, August 18, 2017 15:45 - CONCLUSION: 1. No active disease. Ramana Woods MD Carotid Artery Ultrasound 08/18/17 Signed Impressions: Service Date/Time: Friday, August 18, 2017 21:55 - CONCLUSION: Minimal plaque at the carotid bulb regions being more prominent on the left. Significant stenosis is not seen. Trae Kahn MD Brain MRI 08/18/17 Signed Impressions: Service Date/Time: Friday, August 18, 2017 20:51 - CONCLUSION: 1. No acute abnormality is seen. No abnormality seen on the diffusion-weighted images to suggest acute infarction. 2. Widespread demyelination likely from small vessel ischemic change. Trae Kahn MD Objective Remarks GENERAL: Well-nourished, well-developed female patient in NAD. Awake and alert. Witnessed ambulating around room. SKIN: Warm and dry. No rash. HEAD: Normocephalic. Atraumatic. EYES: EOMI. No scleral icterus. No injection or drainage. ENT: No nasal bleeding or discharge. Mucous membranes pink and moist. NECK: Supple. Trachea midline. CARDIOVASCULAR: Regular rate and rhythm. S1, S2 noted. No murmur appreciated. RESPIRATORY: Nonlabored. Clear to auscultation. Breath sounds equal bilaterally. GASTROINTESTINAL: Abdomen soft, non-tender, nondistended. Normoactive bowel sounds x4. MUSCULOSKELETAL: No obvious deformities. Extremities without clubbing, cyanosis , or edema. Tenderness to palpation bilateral shoulders with decreased ROM. NEUROLOGICAL: Awake and alert. Normal speech. Motor and sensory function appears to be grossly intact except for some limitation in right take away man. Normal speech. PSYCHIATRIC: Appropriate mood and affect; insight and judgment normal. Medications and IVs Current Medications Medications (Trade) Dose Ordered Sig/Perry Route Start Time Stop Time Status Last Admin (NS Flush) 2 ml BID IV FLUSH 08/18/17 21:00 08/20/17 20:22 (NS Flush) 2 ml UNSCH PRN IV FLUSH 08/18/17 19:30 (D50w (Vial) Inj) 50 ml UNSCH PRN IV PUSH 08/18/17 19:30 (Glucagon Inj) 1 mg UNSCH PRN OTHER 08/18/17 19:30 (Morphine Inj) 2 mg Q3H PRN IV PUSH 08/18/17 21:00 (Nitrostat Sl) 0.4 mg Q5M PRN SL 08/18/17 21:15 (Lovenox Inj) 40 mg DAILY@2100 SQ 08/18/17 23:30 08/20/17 20:22 (Aspirin Chew) 162 mg DAILY PO 08/20/17 09:00 08/20/17 09:40 (Pill Splitter) 1 ea UNSCH PRN OTHER 08/19/17 13:00 (Norvasc) 5 mg DAILY PO 08/21/17 09:00 (Prinivil) 5 mg DAILY PO 08/21/17 09:00 (Lipitor) 40 mg DAILY PO 08/21/17 09:00 (Lopressor) 12.5 mg Q12HR PO 08/20/17 21:00 08/20/17 20:22 A/P Problem List: (1) Elevated troponin I level ICD Code: R74.8 - Abnormal levels of other serum enzymes (2) Leg pain, right ICD Code: M79.604 - Pain in right leg (3) Atypical chest pain ICD Code: R07.89 - Other chest pain Assessment and Plan Ms. Harris is a 62 y/o female from [place] with history of left hemisphere CVA who presented to the ER on 08/17/2017 complaining of right lower extremity pain. Workup revealed mildly elevated troponin at 0.06 and she is admitted to the hospitalist service for ACS rule out and TIA workup. Patient discharged yesterday pending neurology clearance Right lower extremity pain with mild paresthesias in a patient with a history of CVA, improved -Doppler ultrasound of right lower extremity negative for DVT -MRI of lumbar spine shows mild disc bulge with severe facet arthropathy at L5- S1 with resultant mild spinal stenosis. -Head CT mild ventricular dilatation with chronic ischemic white matter changes. No evidence of acute infarct, hemorrhage, mass, or edema. -MRI shows widespread demyelination c/w small vessel dz -MRA of brain negative -Carotid US shows minimal plaque -2D echocardiogram shows dilated atrium and EF 45-50% -Consult neurology- appreciate assistance - doubt this is stroke, obtain MRI right shoulder results, continue aspirin, PT -Frequent neuro checks -NIH stroke scale daily Bilateral shoulder pain -has ongoing Worker's Comp. claim in regards to the right shoulder, recent MRI done as outpatient -also reports injuring her left shoulder at the same time Atypical chest pain, right sided/flank area, resolved Elevated troponin I -EKG shows some mild septal ST elevation -serial trops 0.06 -> 0.06 -> 0.05 -Evaluated by cardiology, no additional cardiac evaluation at this time. Cleared for discharge from cardiac standpoint. -Nitroglycerin sublingual as needed for chest pain -Continuous cardiac telemetry to monitor for arrhythmias Systolic CHF, not in acute exacerbation, new diagnosis 2D echocardiogram shows dilated atrium and EF 45-50% -start on ACEI and BB, continue -CHF teaching -Cardiology consulted, no further cardiac workup at this time DVT prophylaxis -Lovenox 40mg sq Discharge Planning Discharge pending Neurology clearance Haley Manzanares Aug 21, 2017 08:20
[2017-08-21] MEDS ORDERED: LISINOPRIL 5 MG TAB PO SCH (09:00)
[2017-08-21] MEDS ORDERED: ATORVASTATIN 40 MG TAB PO SCH (09:00)
[2017-08-21] MEDS ORDERED: amLODIPine BESYLATE 5 MG TAB PO SCH (09:00)
[2017-08-21] MEDS: ASPIRIN 81 MG CHEW TAB PO SCH (11:14)
[2017-08-21] MEDS: METOPROLOL TARTRATE 25 MG TAB PO SCH (11:15)
[2017-08-21] MEDS: SODIUM CHLORIDE 0.9% FLUSH 10 ML FLUSH IV FLUSH SCH (11:15)
[2017-08-21 13:05] VITALS: BP 134/91; PULSE 60; RESP 18; TEMP 98.5; O2SAT 100
== END 2017-08-21 19:38 | disposition home or self-care (01) ==
LOC: NED 15:12 → NEDA 19:25 → NEPHCDU 21:31
PROVIDERS: ADMIT Internal Medicine; ATTEND Internal Medicine
DX: R74.8 Abnormal levels of other serum enzymes (principal); M79.604 Pain in right leg; R07.89 Other chest pain; M25.511 Pain in right shoulder; M25.512 Pain in left shoulder; R06.00 Dyspnea, unspecified; R11.0 Nausea; R61 Generalized hyperhidrosis; I11.0 Hypertensive heart disease with heart failure; I50.20 Unspecified systolic (congestive) heart failure; M48.061 Spinal stenosis, lumbar region without neurogenic claudication; M46.90 Unspecified inflammatory spondylopathy, site unspecified; M19.90 Unspecified osteoarthritis, unspecified site; Z79.899 Other long term (current) drug therapy; Z79.82 Long term (current) use of aspirin; Z86.73 Personal history of transient ischemic attack (TIA), and cerebral infarction without residual deficits
CPT/HCPCS: 70450; 70544; 70551; 71046; 72148; 80053; 80061; 80185; 82550; 83036; 84443; 84484; 85025; 85610; 85730; 93005; 93306; 93880; 93971; 96372; 96374; 97162; 97166; 99285; G0378; G8987; G8988; G8989; J1650; J1885

== ENCOUNTER 2017-10-12 10:35 | Emergency (ER) | payer SELFPAY ==
[~2017-10-12 10:35] MED LIST changes: +ATOR10TA15 PO; +LISI-519 PO; +METO25TA3 PO
[2017-10-12 10:52] VITALS: BP 153/105; PULSE 68; RESP 14; TEMP 97.7; O2SAT 99
--- NOTE | 2017-10-12 12:11 | PD ---
HPI Chief Complaint: Intermittent left leg numbness Time Seen by Provider: 11:17 Travel History International Travel<30 days: No Contact w/Intl Traveler<30days: No Traveled to known affect area: No History of Present Illness HPI 62yo F with PMH of CVA with right sided weakness presents to the ED with c/o left leg numbness only with walking. Said she has normal sensation when she lies down. Denies any fever, cough, chest pain, sob, n/v, abdominal pain, focal weakness, fall, urinary complaints. PFSH Past Medical History Hx Anticoagulant Therapy: No Blood Disorders: No Cancer: No Cardiovascular Problems: Yes Chemotherapy: No Cerebrovascular Accident: Yes (RIGHT SIDED WEAKNESS IN LEG DUE TO PAST CVA) Diabetes: No Diminished Hearing: No Endocrine: No Genitourinary: No Hypertension: Yes Immune Disorder: No Neurologic: Yes (stroke, R side affected) Psychiatric: No Reproductive: No Respiratory: No ?: Not Menopausal: Yes Tubal Ligation: Yes Past Surgical History Hysterectomy: No Social History Alcohol Use: Yes (on occasion) Tobacco Use: No Substance Use: No Allergies-Medications (Allergen,Severity, Reaction): Coded Allergies: No Known Allergies (Unverified , 02/03/17) Reported Meds & Prescriptions Reported Meds & Active Scripts Active Lisinopril 5 Mg Tab 5 Mg PO DAILY Metoprolol Tartrate 25 Mg Tab 12.5 Mg PO Q12HR Atorvastatin (Atorvastatin Calcium) 10 Mg Tab 10 Mg PO HS Aspirin Low Strength (Aspirin) 81 Mg Chew 162 Mg PO DAILY Norvasc (Amlodipine Besylate) 5 Mg Tab 2.5 Mg PO DAILY Review of Systems Except as stated in HPI: all other systems reviewed are Neg Physical Exam Narrative GENERAL: 62yo F not in distress. SKIN: Focused skin assessment warm/dry. HEAD: Atraumatic. Normocephalic. EYES: Pupils equal and round. No scleral icterus. No injection or drainage. ENT: No nasal bleeding or discharge. Mucous membranes pink and moist. NECK: Trachea midline. No JVD. CARDIOVASCULAR: Regular rate and rhythm. No murmur appreciated. RESPIRATORY: No accessory muscle use. Clear to auscultation. Breath sounds equal bilaterally. GASTROINTESTINAL: Abdomen soft, non-tender, nondistended. BACK: No midline ttp thoracic or lumbar spine. MUSCULOSKELETAL: No obvious deformities. No clubbing. No cyanosis. No edema. NEUROLOGICAL: Awake and alert. No obvious cranial nerve deficits. Motor grossly within normal limits in all extremities. Sensation equal in all extremities. Normal speech. PSYCHIATRIC: Appropriate mood and affect; insight and judgment normal. Data Data Last Documented VS Vital Signs Date Time Temp Pulse Resp B/P (MAP) Pulse Ox O2 Delivery O2 Flow Rate FiO2 10/12/17 10:52 97.7 68 14 153/105 (121) 99 MDM Medical Decision Making Medical Screen Exam Complete: Yes Emergency Medical Condition: Yes Differential Diagnosis Spinal stenosis vs. peripheral neuropathy Narrative Course 62yo F with left leg numbness only with walking. Normal sensation while lying down. Pt was recently admitted in end of July and had full neurologic work up for possible TIA. Pt had MRI LS as well and showed disc bulge and severe facet hypertrophy at L5-S1 leading to spinal stenosis. Pt's symptom is consistent with spinal stenosis. No new trauma, back pain or IVDA. Informed pt to follow up with neurosurgery as outpatient. Return precautions given. Diagnosis Primary Impression: Spinal stenosis Qualified Codes: M48.062 - Spinal stenosis, lumbar region with neurogenic claudication Referrals: Josesito Wetzel MD as needed spinal stenosis Patient Instructions: General Instructions Departure Forms: Tests/Procedures Additional Instructions: Please follow up with neurosurgery for treatment options if symptoms persist. Please return to the ED if symptoms worsen. Med/Other Pt SpecificInfo: No Change to Meds Disposition: 01 DISCHARGE HOME Condition: Stable Mindi Moise DO October 12, 2017 12:11
[2017-10-12 12:30] VITALS: BP 151/92; PULSE 88; RESP 16; O2SAT 96
== END 2017-10-12 12:40 | disposition home or self-care (01) ==
LOC: PHED 10:35
DX: M48.062 Spinal stenosis, lumbar region with neurogenic claudication (principal); I69.351 Hemiplegia and hemiparesis following cerebral infarction affecting right dominant side
CPT/HCPCS: 99281

== ENCOUNTER 2018-04-03 06:10 | Inpatient (IN) ==
[2018-04-03] MEDS ORDERED: Nitroglycerin Drip Premix 50 MG/250 ML BOTTLE IV.CONT PRN (06:13)
--- NOTE | 2018-04-03 06:27 | ED ---
HPI General Chief Complaint: Shortness of Breath/Dyspnea Stated Complaint: emergent Time Seen by Provider: 04/03/18 06:13 Source: patient and family Mode of arrival: ambulatory Limitations: other (Anxious, respiratory distress) History of Present Illness 63-year-old female came to the emergency room brought in by her roommate for progressively worsening shortness of breath. Patient seemed to be very anxious and in respiratory distress and was having a difficult time giving proper history. I got a more thorough history from the friend. As per him patient has been complaining of shortness of breath mostly in the mornings for past 3-4 days. Last night she was also complaining of right upper quadrant abdominal pain. She woke up and was extremely short of breath when the friend decided to bring her to the emergency room. As per him she has history of hypertension and stroke 10 months ago. But she is not compliant with her medications. She does not have insurance and no means to buy the medications. As per him she takes one baby aspirin here and there. Upon arrival patient's blood pressure was 208/125. She was complaining of chest pressure. She was unable to localize the pain. Could not give a more descriptive history in regards to radiation, aggravating or relieving factors. Patient did tell me that she has weakness on the right side of her body due to her previous stroke. Related Data Home Medications Medication Instructions Recorded Confirmed Unable to Obtain Home Meds 04/03/18 04/03/18 Previous Rx's Medication Instructions Recorded amlodipine [Norvasc] 10 mg PO DAILY #30 tab 04/04/18 aspirin [Aspirin Low Dose] 81 mg PO DAILY #30 tab 04/04/18 atorvastatin 40 mg PO HS #30 tab 04/04/18 enalapril maleate 20 mg PO BID #60 tab 04/04/18 furosemide 20 mg PO DAILY #30 tab 04/04/18 metoprolol tartrate 100 mg PO BID #60 tab 04/04/18 potassium chloride 20 meq PO DAILY #30 tab 04/04/18 Allergies Allergy/AdvReac Type Severity Reaction Status Date / Time No Known Allergies Allergy Verified 04/03/18 06:45 Review of Systems ROS Unobtainable ROS Unobtainable: other (Respiratory distress, anxious) ROS: all other systems reviewed are negative Cardiovascular Reports chest pain Respiratory Reports dyspnea [facility] Medical History Medical History Hypertension (Acute) Family History Family History Other Patient denies significant medical history Social History Social History Substance History: No History of Abuse Second Hand Smoke Exposure: Yes Smoking Status: Never smoker How Often Do You Have a Drink Containing Alcohol: Never Recent Travel in [facility] within the Last 8 Weeks: No Recent Out of Country Travel within the Last 8 Weeks: No Immunization History Tetanus Immunization: Unsure Exam Narrative Exam Narrative: GENERAL: Awake, alert, anxious, significant distress SKIN: Focused skin assessment warm/dry. Pale, cool clammy extremities HEAD: Atraumatic. Normocephalic. EYES: Pupils equal and round. No scleral icterus. No injection or drainage. ENT: No nasal bleeding or discharge. Mucous membranes pink and moist. NECK: Trachea midline. No JVD. CARDIOVASCULAR: Regular rate and rhythm. No murmur appreciated. RESPIRATORY: Accessory muscles of respiration used. Decreased air entry bilaterally with end expiratory wheeze GASTROINTESTINAL: Abdomen soft, non-tender, nondistended. Hepatic and splenic margins not palpable. MUSCULOSKELETAL: No obvious deformities. No clubbing. No cyanosis. No edema. NEUROLOGICAL: Awake and alert. No obvious cranial nerve deficits. Motor grossly within normal limits. Normal speech. PSYCHIATRIC: Anxious out of proportion Course Reevaluation(s) Reevaluation #1: patient resting comfortably, will admit Consultations Consultation #1: dr curry agrees to admit Initial Documented Vital Signs Pulse Rate 100 H 04/03/18 06:11 Respiratory Rate 24 04/03/18 06:11 Blood Pressure 190/125 H 04/03/18 06:11 Pulse Oximetry 94 L 04/03/18 06:11 Last Documented Vital Signs Temperature 97.9 F 04/04/18 12:00 Pulse Rate 74 04/04/18 14:00 Respiratory Rate 16 04/04/18 12:00 Blood Pressure 107/75 04/04/18 12:00 Pulse Oximetry 96 04/04/18 12:00 Critical Care Time Critical Care Time: Yes Total Critical Care Time: 45 Attestation: Aggregate critical care time was 45 minutes. Time to perform other separately billable procedures was not included in the critical care time. My time did not include minutes spent treating any other patients simultaneously or on activities that did not directly contribute to the patient's treatment. The services I provided to this patient were to treat and/or prevent clinically significant deterioration that could result in: Flash pulmonary edema, hypertensive emergency, nitro drip, respiratory distress, BIPAP I provided critical care services requiring my management, as noted below: Chart data review, documentation time, medication orders and management, vital sign assessments/reviewing monitor data, ordering and reviewing lab tests, ordering and interpreting/reviewing x-rays and diagnostic studies, care of the patient and discussion of the patient with the admitting physicians. Sign Out Sign Out Data: Patient Sign Out occurred on 04/03/18 at 07:17. Patient's care was discussed, and care was transferred from Jose Masterson to Tatiana Fabian MD. Sign Out Comment: Follow-up on blood test result and admit the patient. Last updated by Jose Masterson MD at 04/03/18 07:05 Post-Handoff Eval: Signed over to me to follow blood work and admit. Blood work shows mild elevation of troponin at 0.07. Patient is currently pain-free and feeling significantly better on BiPAP. Her nitroglycerin is currently at 40 and her blood pressure has also improved. Her BiPAP settings have been weaned down after her ABG and she currently is on FiO2 of 40%. Will admit her to the hospitalist in the intermediate care area. Medical Decision Making MDM Narrative Medical decision making narrative: 6:32 AM given her significantly elevated blood pressure and poor compliance with her medications I had a very high suspicion for flash pulmonary edema. Patient was started on BiPAP stat. She was also started on 1 inch Nitropaste and nitro drip. She was given 1 sublingual nitroglycerin. Last blood pressure was 185/115. Patient told me that after the BiPAP she has been feeling better. Awaiting for chest x-ray, ABG and blood test results. Patient will require admission. 7:12 AM case was signed over to the oncoming ER physician Medical Screen Exam Complete: Yes Emergency Medical Condition: Yes Lab Data Lab results reviewed: Yes I reviewed the patient's lab results. Result diagrams: 04/04/18 08:19 04/04/18 08:19 Lab Results 04/03/18 04/03/18 04/03/18 Range/Units 06:29 06:30 06:30 WBC (4.0-11.0) th/mm3 RBC (4.00-5.30) mil/mm3 Hgb (11.6-15.3) gm/dL Hct (35.0-46.0) % MCV (80.0-100.0) fL MCH (27.0-34.0) pg MCHC (32.0-36.0) % RDW (11.6-17.2) % Plt Count (150-450) th/mm3 MPV (7.0-11.0) fL Neut % (Auto) (16.0-70.0) % Lymph % (Auto) (9.0-44.0) % Chester % (Auto) (0.0-8.0) % Eos % (Auto) (0.0-4.0) % Baso % (Auto) (0.0-2.0) % Neut # (Auto) (1.8-7.7) th/mm3 Lymph # (Auto) (1.0-4.8) th/mm3 Chester # (Auto) (0.0-0.9) th/mm3 Eos # (Auto) (0.0-0.4) th/mm3 Baso # (Auto) (0.0-0.2) th/mm3 WBC Differential Differential Comment PT (9.8-11.6) sec INR Ratio APTT (23.4-31.7) sec Puncture Site Patient Temperature O2 Saturation (90-100) % ABG pH (7.380-7.420) ABG pCO2 (38-42) mmHg ABG pO2 (61-120) mmHg ABG HCO3 (22-26) mmol/L ABG O2 Content (12.0-20.0) Vol % ABG Base Excess (-2-2) mmol/L ABG Methemoglobin (0-2) % Pawel Test Hemoglobin (12.0-16.0) G/DL Carboxyhemoglobin (0-4) % O2 Delivery Device Vent Setting Inspired O2 % Critical Value Sodium 144 (136-145) meq/L Potassium 5.0 (3.5-5.1) meq/L Chloride 110 H (98-107) meq/L Carbon Dioxide 28.3 (21.0-32.0) meq/L Anion Gap 6 (5-15) meq/L BUN 10 (7-18) mg/dL Creatinine 0.98 (0.50-1.00) mg/dL Estimated GFR 69 L (>89) mL/min POC Glucose 97 (68-110) mg/dl Random Glucose 92 (74-106) mg/dL Calcium 8.7 (8.5-10.1) mg/dL Magnesium 2.0 (1.5-2.5) mg/dL Total Bilirubin 0.9 (0.2-1.0) mg/dL AST 91 H (15-37) U/L ALT 71 H (10-53) U/L Alkaline Phosphatase 82 (45-117) U/L Troponin I 0.07 H (0.02-0.05) ng/mL B-Natriuretic Peptide 207 H (0-100) pg/mL Total Protein 7.7 (6.4-8.2) g/dL Albumin 3.5 (3.4-5.0) g/dL Triglycerides (42-150) mg/dL Cholesterol (120-200) mg/dL LDL Cholesterol, Calc (0-99) mg/dL HDL Cholesterol (40.0-60.0) mg/dL Cholesterol/HDL Ratio Ratio 04/03/18 04/03/18 04/03/18 Range/Units 06:30 06:30 07:27 WBC 4.0 (4.0-11.0) th/mm3 RBC 4.58 (4.00-5.30) mil/mm3 Hgb 13.6 (11.6-15.3) gm/dL Hct 39.7 (35.0-46.0) % MCV 86.6 (80.0-100.0) fL MCH 29.7 (27.0-34.0) pg MCHC 34.3 (32.0-36.0) % RDW 14.6 (11.6-17.2) % Plt Count 155 (150-450) th/mm3 MPV 9.9 (7.0-11.0) fL Neut % (Auto) 58.2 (16.0-70.0) % Lymph % (Auto) 32.3 (9.0-44.0) % Chester % (Auto) 8.2 H (0.0-8.0) % Eos % (Auto) 0.8 (0.0-4.0) % Baso % (Auto) 0.5 (0.0-2.0) % Neut # (Auto) 2.3 (1.8-7.7) th/mm3 Lymph # (Auto) 1.3 (1.0-4.8) th/mm3 Chester # (Auto) 0.3 (0.0-0.9) th/mm3 Eos # (Auto) 0.0 (0.0-0.4) th/mm3 Baso # (Auto) 0.0 (0.0-0.2) th/mm3 WBC Differential . Differential Comment Auto diff final PT (9.8-11.6) sec INR Ratio APTT (23.4-31.7) sec Puncture Site Left brachial Patient Temperature 98.6 O2 Saturation 99 (90-100) % ABG pH 7.44 H (7.380-7.420) ABG pCO2 38 (38-42) mmHg ABG pO2 490 H (61-120) mmHg ABG HCO3 25 (22-26) mmol/L ABG O2 Content 19.7 (12.0-20.0) Vol % ABG Base Excess 1.5 (-2-2) mmol/L ABG Methemoglobin 0.5 (0-2) % Pawel Test Present Hemoglobin 13.3 (12.0-16.0) G/DL Carboxyhemoglobin 1.0 (0-4) % O2 Delivery Device Bipap Vent Setting Ipap12 epap6 Inspired O2 100 % Critical Value No Sodium (136-145) meq/L Potassium (3.5-5.1) meq/L Chloride (98-107) meq/L Carbon Dioxide (21.0-32.0) meq/L Anion Gap (5-15) meq/L BUN (7-18) mg/dL Creatinine (0.50-1.00) mg/dL Estimated GFR (>89) mL/min POC Glucose (68-110) mg/dl Random Glucose (74-106) mg/dL Calcium (8.5-10.1) mg/dL Magnesium (1.5-2.5) mg/dL Total Bilirubin (0.2-1.0) mg/dL AST (15-37) U/L ALT (10-53) U/L Alkaline Phosphatase (45-117) U/L Troponin I (0.02-0.05) ng/mL B-Natriuretic Peptide (0-100) pg/mL Total Protein (6.4-8.2) g/dL Albumin (3.4-5.0) g/dL Triglycerides 78 (42-150) mg/dL Cholesterol 183 (120-200) mg/dL LDL Cholesterol, Calc 115 H (0-99) mg/dL HDL Cholesterol 52.0 (40.0-60.0) mg/dL Cholesterol/HDL Ratio 3.51 Ratio 04/03/18 04/03/18 04/04/18 Range/Units 09:40 16:36 08:19 WBC (4.0-11.0) th/mm3 RBC (4.00-5.30) mil/mm3 Hgb (11.6-15.3) gm/dL Hct (35.0-46.0) % MCV (80.0-100.0) fL MCH (27.0-34.0) pg MCHC (32.0-36.0) % RDW (11.6-17.2) % Plt Count (150-450) th/mm3 MPV (7.0-11.0) fL Neut % (Auto) (16.0-70.0) % Lymph % (Auto) (9.0-44.0) % Chester % (Auto) (0.0-8.0) % Eos % (Auto) (0.0-4.0) % Baso % (Auto) (0.0-2.0) % Neut # (Auto) (1.8-7.7) th/mm3 Lymph # (Auto) (1.0-4.8) th/mm3 Chester # (Auto) (0.0-0.9) th/mm3 Eos # (Auto) (0.0-0.4) th/mm3 Baso # (Auto) (0.0-0.2) th/mm3 WBC Differential Differential Comment PT 10.7 (9.8-11.6) sec INR 1.1 Ratio APTT 23.6 (23.4-31.7) sec Puncture Site Patient Temperature O2 Saturation (90-100) % ABG pH (7.380-7.420) ABG pCO2 (38-42) mmHg ABG pO2 (61-120) mmHg ABG HCO3 (22-26) mmol/L ABG O2 Content (12.0-20.0) Vol % ABG Base Excess (-2-2) mmol/L ABG Methemoglobin (0-2) % Pawel Test Hemoglobin (12.0-16.0) G/DL Carboxyhemoglobin (0-4) % O2 Delivery Device Vent Setting Inspired O2 % Critical Value Sodium 144 (136-145) meq/L Potassium 3.7 D (3.5-5.1) meq/L Chloride 107 (98-107) meq/L Carbon Dioxide 29.0 (21.0-32.0) meq/L Anion Gap 8 (5-15) meq/L BUN 11 (7-18) mg/dL Creatinine 0.94 (0.50-1.00) mg/dL Estimated GFR 72 L (>89) mL/min POC Glucose (68-110) mg/dl Random Glucose 97 (74-106) mg/dL Calcium 8.8 (8.5-10.1) mg/dL Magnesium (1.5-2.5) mg/dL Total Bilirubin (0.2-1.0) mg/dL AST (15-37) U/L ALT (10-53) U/L Alkaline Phosphatase (45-117) U/L Troponin I 0.08 H (0.02-0.05) ng/mL B-Natriuretic Peptide (0-100) pg/mL Total Protein (6.4-8.2) g/dL Albumin (3.4-5.0) g/dL Triglycerides (42-150) mg/dL Cholesterol (120-200) mg/dL LDL Cholesterol, Calc (0-99) mg/dL HDL Cholesterol (40.0-60.0) mg/dL Cholesterol/HDL Ratio Ratio 04/04/18 Range/Units 08:19 WBC 6.5 (4.0-11.0) th/mm3 RBC 4.84 (4.00-5.30) mil/mm3 Hgb 14.2 (11.6-15.3) gm/dL Hct 42.4 (35.0-46.0) % MCV 87.5 (80.0-100.0) fL MCH 29.3 (27.0-34.0) pg MCHC 33.5 (32.0-36.0) % RDW 15.1 (11.6-17.2) % Plt Count 150 (150-450) th/mm3 MPV 9.7 (7.0-11.0) fL Neut % (Auto) (16.0-70.0) % Lymph % (Auto) (9.0-44.0) % Chester % (Auto) (0.0-8.0) % Eos % (Auto) (0.0-4.0) % Baso % (Auto) (0.0-2.0) % Neut # (Auto) (1.8-7.7) th/mm3 Lymph # (Auto) (1.0-4.8) th/mm3 Chester # (Auto) (0.0-0.9) th/mm3 Eos # (Auto) (0.0-0.4) th/mm3 Baso # (Auto) (0.0-0.2) th/mm3 WBC Differential Differential Comment PT (9.8-11.6) sec INR Ratio APTT (23.4-31.7) sec Puncture Site Patient Temperature O2 Saturation (90-100) % ABG pH (7.380-7.420) ABG pCO2 (38-42) mmHg ABG pO2 (61-120) mmHg ABG HCO3 (22-26) mmol/L ABG O2 Content (12.0-20.0) Vol % ABG Base Excess (-2-2) mmol/L ABG Methemoglobin (0-2) % Pawel Test Hemoglobin (12.0-16.0) G/DL Carboxyhemoglobin (0-4) % O2 Delivery Device Vent Setting Inspired O2 % Critical Value Sodium (136-145) meq/L Potassium (3.5-5.1) meq/L Chloride (98-107) meq/L Carbon Dioxide (21.0-32.0) meq/L Anion Gap (5-15) meq/L BUN (7-18) mg/dL Creatinine (0.50-1.00) mg/dL Estimated GFR (>89) mL/min POC Glucose (68-110) mg/dl Random Glucose (74-106) mg/dL Calcium (8.5-10.1) mg/dL Magnesium (1.5-2.5) mg/dL Total Bilirubin (0.2-1.0) mg/dL AST (15-37) U/L ALT (10-53) U/L Alkaline Phosphatase (45-117) U/L Troponin I (0.02-0.05) ng/mL B-Natriuretic Peptide (0-100) pg/mL Total Protein (6.4-8.2) g/dL Albumin (3.4-5.0) g/dL Triglycerides (42-150) mg/dL Cholesterol (120-200) mg/dL LDL Cholesterol, Calc (0-99) mg/dL HDL Cholesterol (40.0-60.0) mg/dL Cholesterol/HDL Ratio Ratio Imaging Data Attestation: I personally reviewed and interpreted this imaging study as follows : Radiologist's impression: Chest X-Ray 04/03/18 06:14 CONCLUSION: Radiographic pattern suggesting pulmonary edema. ECG Data Attestation: I personally reviewed and interpreted this ECG as follows: Interpretation: Twelve-lead EKG was reviewed by me. Normal sinus rhythm, normal axis, PVC, LVH by voltage criteria, poor R wave progression. Heart rate of 93 bpm. Discharge Plan Discharge Disposition Patient Disposition: 30 Still Patient Discharge Condition Condition: Stable Discharge Order Discharge Orders: Discharge Order (Routine); Ordered 04/04/18 Ordered By: Yo Elias Cardiology Clear for Discharge (Routine); Ordered 04/04/18 Ordered By: James Grande Discharge Details Diagnosis: Pulmonary edema, Respiratory failure, Hypertensive emergency Physicians Team ED Provider: Tatiana Fabian Primary Care Provider: UNKNOWN, Attending Provider: Yo Elias Other Providers: James Grande Status ED Status: Left Department Discharge Information Discharge Date/Time: 04/03/18 11:22
--- NOTE | 2018-04-03 06:39 | XR ---
EXAM DATE: 04/03/2018 6:36 AM EST AGE/SEX: 63 years / Female INDICATIONS: Shortness of breath. CLINICAL DATA: This is the patient's initial encounter. Patient reports that signs and symptoms have been present for 1 day and indicates a pain score of 0/10. MEDICAL/SURGICAL HISTORY: Hypertension. Cerebrovascular disease. Tubal ligation. COMPARISON: [facility] – [place], CHEST PA & LAT, 08/18/2017. . FINDINGS: A single AP view of the chest demonstrates mild cardiomegaly. Interstitial prominence throughout both lungs predominantly within the bases. Subtle intra-alveolar opacities within each lung base. No effu sions. Bony structures are unremarkable. CONCLUSION: Radiographic pattern suggesting pulmonary edema. Electronically signed by: Jose A Bolivar MD 04/03/2018 6:37 AM EST
[2018-04-03 06:47] LABS: ABG Base Excess 1.5 mmol/L (-2-2); ABG PCO2 38 mmHg (38-42); ABG PO2 490 mmHg (61-120)
[2018-04-03 07:27] LABS: Alanine Aminotransferase 71 U/L (10-53); Alkaline Phosphatase 82 U/L (45-117); Total Protein 7.7 g/dL (6.4-8.2); Troponin I 0.07 ng/mL (0.02-0.05)
[2018-04-03 07:36] LABS: Baso % (Auto) 0.5 % (0.0-2.0); Eos % (Auto) 0.8 % (0.0-4.0); Hematocrit 39.7 % (35.0-46.0); Hemoglobin 13.6 gm/dL (11.6-15.3); Lymph # (Auto) 1.3 th/mm3 (1.0-4.8); Lymph % (Auto) 32.3 % (9.0-44.0); Mean Corpuscular HGB Conc 34.3 % (32.0-36.0); Mean Corpuscular Hemoglobin 29.7 pg (27.0-34.0); Mean Corpuscular Volume 86.6 fL (80.0-100.0); Mean Platelet Volume 9.9 fL (7.0-11.0); Mono # (Auto) 0.3 th/mm3 (0.0-0.9); Mono % (Auto) 8.2 % (0.0-8.0); Neut # (Auto) 2.3 th/mm3 (1.8-7.7); Neut % (Auto) 58.2 % (16.0-70.0); Platelet Count 155 th/mm3 (150-450); Red Blood Count 4.58 mil/mm3 (4.00-5.30); Red Cell Distribution Width 14.6 % (11.6-17.2)
[2018-04-03 07:39] LABS: Albumin 3.5 g/dL (3.4-5.0); Anion Gap 6 meq/L (5-15); Aspartate Aminotransferase 91 U/L (15-37); Blood Urea Nitrogen 10 mg/dL (7-18); Calcium 8.7 mg/dL (8.5-10.1); Carbon Dioxide 28.3 meq/L (21.0-32.0); Chloride 110 meq/L (98-107); Glomerular Filtration Rate 69 mL/min (>89); Glucose,Random 92 mg/dL (74-106); Sodium 144 meq/L (136-145)
[2018-04-03] MEDS ORDERED: Heparin 10,000 UNITS/10 ML Vial (for IV use) IV.PUSH STA (08:57)
[2018-04-03] MEDS ORDERED: Heparin Drip 25,000 UNIT/250 ML BAG IV.CONT PRN (08:57)
[2018-04-03 09:53] LABS: Chol/HDL Ratio 3.51 Ratio
--- NOTE | 2018-04-03 09:57 | P.HP ---
History of Present Illness Primary Care Physician: UNKNOWN History of Present Illness: 63-year-old black female being admitted for shortness of breath, hypertensive emergency, and elevated troponin. Case discussed with ER physician. Patient was in her usual state of health until the last 3-4 days when she would wake up in the morning, associated with a "heavy" chest pressure feeling. But denies any norah chest pain. This usually gets better later in the day. Denies an out right exertional component. She also has had some abdominal pain for the past few days which at its worst is a 5/10 intensity. Reports having an associated headache. Otherwise denies any nausea vomiting fevers or chills. Denies any exertional dyspnea or exertional chest pain. Patient says in general she does not take medications. Used to take baby aspirin a while back. Denies taking NSAIDs at this time. Patient says she has had a stroke leaving her with right-sided weakness maybe 5 years ago and has been not been able to work since then. 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 Says she also had a back injury when she fell landing on her back maybe 3 years ago and has had chronic back pain since then. Emergency department she came in very dyspneic. EKG which had been reviewed shows no significant changes concerning for ischemia or infarction. Chest x- ray which I also reviewed showed very mild pulmonary edema. She was placed on BiPAP at 100%, FiO2 was then titrated down to 40%. On my evaluation I was able to take off of her BiPAP and place her on 2 L and she had no conversive dyspnea. She has an initial elevated troponin of 0.07. Blood pressures are in the 200s systolic. Was started on nitroglycerin drip by emergency department. Inpatient Certification: I certify that the inpatient services were ordered in accordance with Medicare regulations governing the order. This includes certification that hospital inpatient services are reasonable and necessary and in the case of services not specified as inpatient-only under 42 CFR 419.22(n), that they are appropriately provided as inpatient services in accordance to with the 2-midnight benchmark under 43 CFR 412.3(e) Estimated Total Length of Stay (Days): 2 Plans for Post Hospital Care: Not yet determined Review of Systems All other systems reviewed negative except as stated in HPI [facility] - History History Provided By: Patient, Significant Other - Medical History Medical History: Medical History (Last Updated 04/03/18 @ 10:06 by Yo Elias MD) History of hysterectomy Hypertension - Family History Family History: Family History (Last Updated 04/03/18 @ 10:06 by Yo Elias MD) Other Patient denies significant medical history - Tobacco History Second Hand Smoke Exposure: Yes Smoking Status: Never smoker - Alcohol History How Often Do You Have a Drink Containing Alcohol: Never - Substance Use History Substance History: No History of Abuse - Travel History Recent Travel in the [place] Within the Last 8 Weeks: No Recent Travel Out of the Country Within the Last 8 Weeks: No - Immunization History Tetanus Immunization: Unsure Medications and Allergies Active Medications: Active Medications Aspirin (Aspirin) 325 mg PO DAILY GRACIE Atorvastatin Calcium (Lipitor) 40 mg PO HS GRACIE Nitroglycerin/Dextrose (Nitroglycerin Drip Premix) 50 mg in 250 mls @ 0 mls/hr IV.CONT TITRATE PRN; Protocol PRN Reason: Per Protocol Last Titration: 04/03/18 06:52 Dose: 40 mcg/min, 12 mls/hr Heparin Sodium/Dextrose (Heparin/D5w 25,000 U/250 Ml) 25,000 unit in 250 mls @ 7 mls/hr IV.CONT TITRATE PRN; Protocol PRN Reason: Per Protocol Sodium Chloride (Ns Flush) 2 ml IV.FLUSH BID GRACIE Last Admin: 04/03/18 09:12 Dose: Not Given Sodium Chloride (Ns Flush) 2 ml IV.FLUSH PRN PRN PRN Reason: FLUSH AFTER USING IV ACCESS Allergies Allergy/AdvReac Type Severity Reaction Status Date / Time No Known Allergies Allergy Verified 04/03/18 06:45 Home Medications Medication Instructions Recorded Confirmed Type Unable to Obtain Home Meds 04/03/18 04/03/18 History Exam Vital signs: Vital Signs 04/03/18 06:11 04/03/18 06:20 04/03/18 06:30 Pulse Rate 100 H 104 H Respiratory Rate 24 40 H Blood Pressure 190/125 H 206/137 H Pulse Oximetry 94 L 100 100 04/03/18 06:34 04/03/18 06:36 04/03/18 06:41 Pulse Rate 84 81 Respiratory Rate 34 H 21 Blood Pressure 187/121 H 179/126 H Pulse Oximetry 100 100 100 04/03/18 06:54 04/03/18 06:56 04/03/18 07:10 Pulse Rate 89 89 82 Respiratory Rate 23 31 H 18 Blood Pressure 170/117 H 156/113 H 131/105 H Pulse Oximetry 100 95 100 04/03/18 07:22 04/03/18 07:37 04/03/18 07:55 Pulse Rate 86 75 Respiratory Rate 16 18 Blood Pressure 137/101 H 135/91 H Pulse Oximetry 100 100 100 04/03/18 08:21 04/03/18 09:25 Pulse Rate 79 87 Respiratory Rate 18 18 Blood Pressure 121/94 H 139/91 H Pulse Oximetry 100 100 Intake & Output 04/02/18 04/03/18 04/03/18 18:59 06:59 18:59 Weight 54.431 kg Narrative: VS: afebrile GENERAL: Well-nourished middle-aged female SKIN: Warm and dry. EYES: No scleral icterus. No injection or drainage. ENT: No nasal bleeding or discharge. On BiPAP initially, normocephalic, atraumatic, BiPAP removed CARDIOVASCULAR: Regular rate and rhythm. no murmurs RESPIRATORY: No accessory muscle use. Mildly diminished breath sounds in the bases GASTROINTESTINAL: Abdomen soft, only minimal tenderness to deep palpation noted in epigastrium, nondistended Extremities: No clubbing, cyanosis, or edema. No obvious deformities. MUSCULOSKELETAL: grossly intact ROM with 5/5 strength in upper and lower extremities proximally; adequate muscle bulk and tone for age and habitus NEUROLOGICAL: Awake and alert. No obvious cranial nerve deficits. No facial droop nor slurred speech noted. PSYCHIATRIC: Appropriate mood and affect; insight and judgment normal. Results - Labs CBC & Chem 7: 04/04/18 08:19 04/04/18 08:19 Labs: Laboratory Results - last 24 hr 04/03/18 04/03/18 04/03/18 06:29 06:30 06:30 WBC RBC Hgb Hct MCV MCH MCHC RDW Plt Count MPV Neut % (Auto) Lymph % (Auto) [place] % (Auto) Eos % (Auto) Baso % (Auto) Neut # (Auto) Lymph # (Auto) [place] # (Auto) Eos # (Auto) Baso # (Auto) WBC Differential Differential Comment Puncture Site Patient Temperature O2 Saturation ABG pH ABG pCO2 ABG pO2 ABG HCO3 ABG O2 Content ABG Base Excess ABG Methemoglobin Pawel Test Hemoglobin Carboxyhemoglobin O2 Delivery Device Vent Setting Inspired O2 Critical Value Sodium 144 Potassium 5.0 Chloride 110 H Carbon Dioxide 28.3 Anion Gap 6 BUN 10 Creatinine 0.98 Estimated GFR 69 L POC Glucose 97 Random Glucose 92 Calcium 8.7 Magnesium 2.0 Total Bilirubin 0.9 AST 91 H ALT 71 H Alkaline Phosphatase 82 Troponin I 0.07 H B-Natriuretic Peptide 207 H Total Protein 7.7 Albumin 3.5 Triglycerides Cholesterol LDL Cholesterol, Calc HDL Cholesterol Cholesterol/HDL Ratio 04/03/18 04/03/18 04/03/18 06:30 06:30 07:27 WBC 4.0 RBC 4.58 Hgb 13.6 Hct 39.7 MCV 86.6 MCH 29.7 MCHC 34.3 RDW 14.6 Plt Count 155 MPV 9.9 Neut % (Auto) 58.2 Lymph % (Auto) 32.3 [place] % (Auto) 8.2 H Eos % (Auto) 0.8 Baso % (Auto) 0.5 Neut # (Auto) 2.3 Lymph # (Auto) 1.3 [place] # (Auto) 0.3 Eos # (Auto) 0.0 Baso # (Auto) 0.0 WBC Differential . Differential Comment Auto diff final Puncture Site Left brachial Patient Temperature 98.6 O2 Saturation 99 ABG pH 7.44 H ABG pCO2 38 ABG pO2 490 H ABG HCO3 25 ABG O2 Content 19.7 ABG Base Excess 1.5 ABG Methemoglobin 0.5 Pawel Test Present Hemoglobin 13.3 Carboxyhemoglobin 1.0 O2 Delivery Device Bipap Vent Setting Ipap12 epap6 Inspired O2 100 Critical Value No Sodium Potassium Chloride Carbon Dioxide Anion Gap BUN Creatinine Estimated GFR POC Glucose Random Glucose Calcium Magnesium Total Bilirubin AST ALT Alkaline Phosphatase Troponin I B-Natriuretic Peptide Total Protein Albumin Triglycerides 78 Cholesterol 183 LDL Cholesterol, Calc 115 H HDL Cholesterol 52.0 Cholesterol/HDL Ratio 3.51 - Imaging Impressions Chest X-Ray 04/03/18 06:14 CONCLUSION: Radiographic pattern suggesting pulmonary edema. Caprini VTE Risk Assessment Caprini VTE Risk Assessment: Moderate/High Risk (score >= 2) Caprini Risk Assessment Model: Point Value = 1 Point Value = 2 Point Value = 3 Point Value = 5 Age 41-60 Minor surgery BMI > 25 kg/m2 Swollen legs Varicose veins or History of unexplained or recurrent spontaneous Oral contraceptives or hormone replacement Sepsis (< 1 month) Serious lung disease, including pneumonia (< 1 month) Abnormal pulmonary function Acute myocardial infarction Congestive heart failure (< 1 month) History of inflammatory bowel disease Medical patient at bed rest Age 61-74 Arthroscopic surgery Major open surgery (> 45 min) Laparoscopic surgery (> 45 min) Malignancy Confined to bed (> 72 hours) Immobilizing plaster cast Central venous access Age >= 75 History of VTE Family history of VTE Factor V Leiden Prothrombin [id number] Lupus anticoagulant Anticardiolipin antibodies Elevated serum homocysteine Heparin-induced thrombocytopenia Other congenital or acquired thrombophilia Stroke (< 1 month) Elective arthroplasty Hip, pelvis, or leg fracture Acute spinal cord injury (< 1 month) Prophylaxis Regimen: Total Risk Factor Score Risk Level Prophylaxis Regimen 0-1 Low Early ambulation 2 Moderate Order ONE of the following: *Sequential Compression Device (SCD) *Heparin 5000 units SQ BID 3-4 Higher Order ONE of the following medications: *Heparin 5000 units SQ TID *Enoxaparin/Lovenox 40 mg SQ daily (WT < 150 kg, CrCl > 30 mL/min) *Enoxaparin/Lovenox 30 mg SQ daily (WT < 150 kg, CrCl > 10-29 mL/min) *Enoxaparin/Lovenox 30 mg SQ BID (WT < 150 kg, CrCl > 30 mL/min) AND/OR *Sequential Compression Device (SCD) 5 or more Highest Order ONE of the following medications: *Heparin 5000 units SQ TID (Preferred with Epidurals) *Enoxaparin/Lovenox 40 mg SQ daily (WT < 150 kg, CrCl > 30 mL/min) *Enoxaparin/Lovenox 30 mg SQ daily (WT < 150 kg, CrCl > 10-29 mL/min) *Enoxaparin/Lovenox 30 mg SQ BID (WT < 150 kg, CrCl > 30 mL/min) AND *Sequential Compression Device (SCD) Assessment and Plan - Plan 63-year-old black female being admitted for shortness of breath, hypertensive emergency, elevated troponin. Shortness of breath Possibly atypical angina and/or mild pulmonary edema possibly secondary to hypertensive emergency IV Lasix Intake and output Supplemental oxygen as needed, titrate aggressively downwards Chest pressure with elevated troponin Possible atypical angina versus hypertensive emergency We will start heparin drip, continue nitroglycerin drip - cardiology consulted Start oral antihypertensives -Aspirin, statin -lipid profile and echo ordered Back pain - start low dose tramadol prn pain if pt is unbearable History of stroke per patient No obvious deficit noted on exam, aspirin and statin as above for now Heparin drip
--- NOTE | 2018-04-03 09:59 | ECG ---
Date Performed: 04/03/2018 Time Performed: 06:15:58 PTAGE: 63 years EKG: Marked baseline artifact Sinus rhythm WITH OCCASIONAL VENTRICULAR PREMATURE COMPLEXES MODERATE VOLTAGE CRITERIA FOR LVH, CONSIDER NORMAL V ARIANT POSSIBLE SEPTAL MYOCARDIAL INFARCTION ABNORMAL ECG Compared to prior electrocardiogram, PVCs are present. PREVIOUS TRACING : 08/19/2017 07.01 DOCTOR: Duarte Lugo Interpretating Date/Time 04/03/2018 09:57:53
[2018-04-03 10:20] LABS: Activated Partial Thrombo Time 23.6 sec (23.4-31.7); INR 1.1 Ratio; Prothrombin Time 10.7 sec (9.8-11.6)
[2018-04-03] MEDS: Aspirin 325 MG Tablet PO SCH (10:51)
[2018-04-03] MEDS: Metoprolol Tartrate 50 MG Tablet PO SCH ×2 (10:54→20:22)
[2018-04-03] MEDS: NIFEdipine 10 MG Capsule PO SCH ×3 (10:54→20:22)
--- NOTE | 2018-04-03 11:06 | MB ---
cc: James Grande MD DATE: 04/03/2018 REASON FOR CONSULTATION: Chest pain, abnormal troponin level. HISTORY OF PRESENT ILLNESS: The patient is a 63-year-old female with a history of hypertension, medical noncompliance, CVA in 2011 who presented to the hospital with a 4-day history of increasing shortness of breath. Troponin level was checked and found to be slightly abnormal. Over the last 2 nights, she has had paroxysmal nocturnal dyspnea as well as orthopnea, having to sit up at night. She denies pedal edema, dizziness, syncope, near syncope, palpitations. Mostly in the mornings, she has experienced a substernal chest heaviness, which persists for a few hours. She denies pleurisy, fevers, cough, wheezing. The patient has not taken any hypertension medications in at least a few months. PAST MEDICAL HISTORY: 1. Hypertension. 2. Cerebrovascular accident in 2011. CARDIAC MEDICATIONS AT HOME: None. FAMILY HISTORY: There is no significant family history of early myocardial infarction. SOCIAL HISTORY: The patient denies alcohol, tobacco, or drug abuse. REVIEW OF SYSTEMS: As in history of present illness, otherwise negative or noncontributory. She also denies abdominal pain, melena, dyspepsia, bright red blood per rectum. Occasionally, she experiences mild headaches. PHYSICAL EXAMINATION: VITAL SIGNS: Her blood pressure is 139/91 (initially 206/137 on presentation) with a pulse of 89, respirations 23. GENERAL: She is a well-developed, thin, female in no acute distress. NECK: Jugular venous pressure is normal. Carotid pulses are 2+ bilaterally and without bruits. CHEST: Diminished breath sounds at the bases. CARDIAC: She has a regular rhythm and rate with an S4, S1, S2. No definite murmur is audible. ABDOMEN: She has a soft, nontender abdomen. Bowel sounds are present. There is no definite hepatosplenomegaly. EXTREMITIES: No clubbing, cyanosis, or edema. DIAGNOSTIC DATA: Chest x-ray shows increased interstitial markings. LABORATORY DATA: EKG shows normal sinus rhythm, voltage criteria for left ventricular hypertrophy, possible septal infarct. LABORATORY DATA: Includes normal CBC. Potassium 5.0, BUN 20, creatinine 0.98, AST 91, ALT 71. Troponin 0.07. Total cholesterol 183, LDL 115, HDL 52, triglycerides 78. IMPRESSION: Atypical chest pain, slight troponin elevation, congestive heart failure, uncontrolled hypertension, medical noncompliance in a 63-year-old female with a history of hypertension, CVA. Overall, I doubt the slight elevation in troponin is due to acute coronary syndrome. No acute EKG changes are seen. The slight elevation in troponin is more likely due to elevated blood pressures as well as congestive heart failure. The patient has had similar slight elevations in the troponin in the past. She may indeed have an underlying nonischemic cardiomyopathy due to uncontrolled hypertension. RECOMMENDATIONS: 1. I have stressed to the patient the utter importance of medical compliance. 2. Continue to optimize her blood pressure control. Add beta tawanna. 3. Mild diuresis. 4. The heparin and nitroglycerin drips can be stopped. 5. Check a 2-D echo to reassess her left ventricular function. MD CELESTINO Espinoza/ts , 10:26 AM , 10:35 AM [email or web address]
--- NOTE | 2018-04-03 13:13 | ECHRPT ---
Indication: HEART FAILURE CONCLUSIONS Normal left ventricular size. Severe concentric left ventricular hypertrophy. The left ventricular systolic function is mildly reduced with an estimated ejection fraction of 45%. Mild global hypokinesis. Trace aortic valve regurgitation. BP: / HR: Rhythm: Sinus Technical Quality:Excellent FINDINGS LEFT VENTRICLE Normal left ventricular size. Severe concentric left ventricular hypertrophy. The left ventricular systolic function is mildly reduced with an estimated ejection fraction of 45%. Mild global hypokinesis. RIGHT VENTRICLE Normal right ventricular size and systolic function. LEFT ATRIUM The left atrial size is normal. RIGHT ATRIUM The right atrial size is normal. ATRIAL SEPTUM Normal atrial septal thickness without atrial level shunting by limited color doppler interrogation. AORTA The aortic root and proximal ascending aorta are normal in size on limited imaging. MITRAL VALVE Structurally normal mitral valve. No mitral valve stenosis or regurgitation. AORTIC VALVE Trileaflet aortic valve. Trace aortic valve regurgitation. TRICUSPID VALVE Structurally normal tricuspid valve. No tricuspid valve stenosis or regurgitation. PULMONARY VALVE Trivial pulmonary valve regurgitation. VESSELS The inferior vena cava is normal in size. PERICARDIUM No pericardial effusion. James Grande MD (Electronically Signed) Final Date:03 April 2018 13:12
[2018-04-03] MEDS ORDERED: Metoprolol Tartrate 50 MG Tablet PO SCH (21:08)
[2018-04-04 05:03] VITALS: RESP 16
[2018-04-04] MEDS: Aspirin 325 MG Tablet PO SCH (08:24)
[2018-04-04 08:44] LABS: Hematocrit 42.4 % (35.0-46.0); Hemoglobin 14.2 gm/dL (11.6-15.3); Mean Corpuscular HGB Conc 33.5 % (32.0-36.0); Mean Corpuscular Hemoglobin 29.3 pg (27.0-34.0); Mean Corpuscular Volume 87.5 fL (80.0-100.0); Mean Platelet Volume 9.7 fL (7.0-11.0); Platelet Count 150 th/mm3 (150-450); Red Blood Count 4.84 mil/mm3 (4.00-5.30); Red Cell Distribution Width 15.1 % (11.6-17.2); White Blood Count 6.5 th/mm3 (4.0-11.0)
[2018-04-04 09:23] LABS: Calcium 8.8 mg/dL (8.5-10.1); Potassium 3.7 meq/L (3.5-5.1)
[2018-04-04] MEDS ORDERED: Lisinopril 5 MG Tablet PO SCH (11:00)
--- NOTE | 2018-04-04 11:25 | P.PNCA ---
Subjective Interval history: Denies CP, dyspnea, dizziness, headache, palpitations. Slept very well. Medications and Allergies Active Medications: Active Medications Aspirin (Aspirin) 325 mg PO DAILY [facility] Last Admin: 04/04/18 08:24 Dose: 325 mg Atorvastatin Calcium (Lipitor) 40 mg PO [facility] Enalapril Maleate (Vasotec) 10 mg PO BID [facility] Last Admin: 04/04/18 08:24 Dose: 10 mg Metoprolol Tartrate (Lopressor) 100 mg PO BID [facility] Last Admin: 04/04/18 08:23 Dose: 100 mg Sodium Chloride (Ns Flush) 2 ml IV.FLUSH BID [facility] Last Admin: 04/04/18 08:24 Dose: 2 ml Sodium Chloride (Ns Flush) 2 ml IV.FLUSH PRN PRN PRN Reason: FLUSH AFTER USING IV ACCESS Allergies Allergy/AdvReac Type Severity Reaction Status Date / Time No Known Allergies Allergy Verified 04/03/18 06:45 Home Medications Medication Instructions Recorded Confirmed Type Unable to Obtain Home Meds 04/03/18 04/03/18 History Physical Exam Vital signs: Vital Signs 04/03/18 11:37 04/03/18 12:00 04/03/18 13:00 Temperature 97.5 F L Pulse Rate 81 77 Respiratory Rate 16 Blood Pressure 125/96 H Pulse Oximetry 99 99 04/03/18 14:00 04/03/18 15:00 04/03/18 16:00 Temperature 97.8 F Pulse Rate 85 84 86 Respiratory Rate 16 Blood Pressure 130/87 Pulse Oximetry 99 04/03/18 16:47 04/03/18 17:00 04/03/18 17:14 Temperature Pulse Rate 83 Respiratory Rate Blood Pressure Pulse Oximetry 97 97 04/03/18 18:00 04/03/18 19:00 04/03/18 20:00 Temperature 98.7 F Pulse Rate 82 71 75 Respiratory Rate Blood Pressure Pulse Oximetry 96 04/03/18 21:00 04/03/18 22:00 04/03/18 23:00 Temperature Pulse Rate 69 69 70 Respiratory Rate Blood Pressure Pulse Oximetry 04/04/18 00:00 04/04/18 01:00 04/04/18 02:00 Temperature 99.4 F Pulse Rate 69 68 68 Respiratory Rate 18 Blood Pressure 107/76 Pulse Oximetry 92 L 04/04/18 03:00 04/04/18 04:00 04/04/18 05:00 Temperature 98.7 F Pulse Rate 66 62 87 Respiratory Rate 16 Blood Pressure 130/89 Pulse Oximetry 98 04/04/18 06:00 04/04/18 07:00 04/04/18 08:00 Temperature 97.7 F Pulse Rate 66 72 70 Respiratory Rate 16 Blood Pressure 143/103 H Pulse Oximetry 97 04/04/18 09:00 04/04/18 09:24 04/04/18 10:00 Temperature Pulse Rate 62 60 Respiratory Rate Blood Pressure Pulse Oximetry 97 04/04/18 11:00 Temperature Pulse Rate 60 Respiratory Rate Blood Pressure Pulse Oximetry Intake & Output 04/03/18 04/04/18 04/04/18 18:59 06:59 18:59 Intake Total 770 / 770 240 / 240 Output Total 1500 / 1500 500 / 500 Balance -730 / -730 -260 / -260 Intake: IV 50 / 50 Nitroglycerin Drip Premix 50 mg 50 / 50 In 250 ml @ Per Protocol IV. CONT TITRATE PRN Rx#:[id number] Oral 720 / 720 240 / 240 Output: Urine 1500 / 1500 500 / 500 - Constitutional no acute distress - Routine Neck Exam Absent: JVD - Routine Respiratory Exam Comments: Diminished breath sounds bases. - Routine Cardiovascular Exam Present: RRR, S1, S4. Absent: murmur, S3 - Routine Abdominal Exam Present: soft, normoactive bowel sounds. Absent: tenderness, organomegaly - Routine Extremities Exam Absent: cyanosis, clubbing, edema - Urinary Catheter Management Indwelling Urethral Catheter Cath placed during this visit: yes Reason for continuing: Hourly intake/output Insertion date: 04/03/18 Insertion time: 06:46 Results 04/04/18 08:19 04/04/18 08:19 Cardiac Enzymes 04/03/18 04/03/18 04/03/18 Range/Units 06:30 06:30 16:36 AST 91 H (15-37) U/L Troponin I 0.07 H 0.08 H (0.02-0.05) ng/mL B-Natriuretic Peptide 207 H (0-100) pg/mL Coagulation 04/03/18 04/03/18 Range/Units 06:30 09:40 PT 10.7 (9.8-11.6) sec APTT 23.6 (23.4-31.7) sec B-Natriuretic Peptide 207 H (0-100) pg/mL Lipids 04/03/18 Range/Units 06:30 Triglycerides 78 (42-150) mg/dL Cholesterol 183 (120-200) mg/dL HDL Cholesterol 52.0 (40.0-60.0) mg/dL Cholesterol/HDL Ratio 3.51 Ratio CBC 04/03/18 04/04/18 Range/Units 07:27 08:19 WBC 4.0 6.5 (4.0-11.0) th/mm3 RBC 4.58 4.84 (4.00-5.30) mil/mm3 Hgb 13.6 14.2 (11.6-15.3) gm/dL Hct 39.7 42.4 (35.0-46.0) % Plt Count 155 150 (150-450) th/mm3 Neut # (Auto) 2.3 (1.8-7.7) th/mm3 Lymph # (Auto) 1.3 (1.0-4.8) th/mm3 [place] # (Auto) 0.3 (0.0-0.9) th/mm3 Eos # (Auto) 0.0 (0.0-0.4) th/mm3 Baso # (Auto) 0.0 (0.0-0.2) th/mm3 Comprehensive Metabolic Panel 04/03/18 04/04/18 Range/Units 06:30 08:19 Sodium 144 144 (136-145) meq/L Potassium 5.0 3.7 D (3.5-5.1) meq/L Chloride 110 H 107 (98-107) meq/L Carbon Dioxide 28.3 29.0 (21.0-32.0) meq/L BUN 10 11 (7-18) mg/dL Creatinine 0.98 0.94 (0.50-1.00) mg/dL Calcium 8.7 8.8 (8.5-10.1) mg/dL AST 91 H (15-37) U/L ALT 71 H (10-53) U/L Alkaline Phosphatase 82 (45-117) U/L Total Protein 7.7 (6.4-8.2) g/dL Albumin 3.5 (3.4-5.0) g/dL Intake and Output 04/03/18 04/04/18 04/04/18 22:59 06:59 14:59 Intake Total 720 / 720 240 / 240 Output Total 1500 / 1500 500 / 500 Balance -780 / -780 -260 / -260 Intake: Oral 720 / 720 240 / 240 Output: Urine 1500 / 1500 500 / 500 - Imaging and Cardiology Imaging: Impressions Chest X-Ray 04/03/18 06:14 CONCLUSION: Radiographic pattern suggesting pulmonary edema. Assessment and Plan - Assessment (1) Hypertensive emergency Code(s): I16.1 - Hypertensive emergency Status: Acute Plan: BP's better overall, still suboptimal. EF mildly reduced and severe LVH by echo, likely due to longstanding poorly controlled BP. REC increase enalapril dosing, add amlodipine, close f/u with PCP, daily home BP checks. OK to discharge today from cardiac standpoint. (2) Congestive heart failure Code(s): I50.9 - Heart failure, unspecified Status: Acute Plan: Symptomatically improved after diuresis, better control of BP. EF mildly reduced 45%, likely nonischemic in etiology. 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 (3) Elevated troponin Code(s): R74.8 - Abnormal levels of other serum enzymes Status: Acute Plan: Minimal troponin elevations, likely due to elevated BP and acute CHF. Overall no other evidence for ACS. - Plan Code Status: full code Discussed Condition With: patient (2) Congestive heart failure Qualifiers: Heart failure type: combined systolic and diastolic
[2018-04-04] MEDS ORDERED: amLODIPine 10 MG Tablet PO SCH (11:30)
[2018-04-04 12:02] VITALS: BP 107/75; TEMP 97.9; O2SAT 96
--- NOTE | 2018-04-04 12:08 | P.PN ---
Subjective Interval history: Nursing denies any acute deterioration since last night. Patient self says she is not short of breath at this time. No chest pain. Is asking for recommendations for primary care follow-up. Physical Exam Vital signs: Vital Signs 04/03/18 13:00 04/03/18 14:00 04/03/18 15:00 Temperature Pulse Rate 77 85 84 Respiratory Rate Blood Pressure Pulse Oximetry 04/03/18 16:00 04/03/18 16:47 04/03/18 17:00 Temperature 97.8 F Pulse Rate 86 83 Respiratory Rate 16 Blood Pressure 130/87 Pulse Oximetry 99 97 04/03/18 17:14 04/03/18 18:00 04/03/18 19:00 Temperature Pulse Rate 82 71 Respiratory Rate Blood Pressure Pulse Oximetry 97 04/03/18 20:00 04/03/18 21:00 04/03/18 22:00 Temperature 98.7 F Pulse Rate 75 69 69 Respiratory Rate Blood Pressure Pulse Oximetry 96 04/03/18 23:00 04/04/18 00:00 04/04/18 01:00 Temperature 99.4 F Pulse Rate 70 69 68 Respiratory Rate 18 Blood Pressure 107/76 Pulse Oximetry 92 L 04/04/18 02:00 04/04/18 03:00 04/04/18 04:00 Temperature 98.7 F Pulse Rate 68 66 62 Respiratory Rate 16 Blood Pressure 130/89 Pulse Oximetry 98 04/04/18 05:00 04/04/18 06:00 04/04/18 07:00 Temperature Pulse Rate 87 66 72 Respiratory Rate Blood Pressure Pulse Oximetry 04/04/18 08:00 04/04/18 09:00 04/04/18 09:24 Temperature 97.7 F Pulse Rate 70 62 Respiratory Rate 16 Blood Pressure 143/103 H Pulse Oximetry 97 97 04/04/18 10:00 04/04/18 11:00 04/04/18 12:00 Temperature 97.9 F Pulse Rate 60 60 65 Respiratory Rate 16 Blood Pressure 107/75 Pulse Oximetry 96 Intake & Output 04/03/18 04/04/18 04/04/18 18:59 06:59 18:59 Intake Total 770 / 770 240 / 240 Output Total 1500 / 1500 500 / 500 Balance -730 / -730 -260 / -260 Intake: IV 50 / 50 Nitroglycerin Drip Premix 50 mg 50 / 50 In 250 ml @ Per Protocol IV. CONT TITRATE PRN Rx#:[id number] Oral 720 / 720 240 / 240 Output: Urine 1500 / 1500 500 / 500 Narrative: Heart sounds regular rate rhythm, no murmurs Clear lungs bilaterally, unlabored breathing On room air Appears comfortable, lying in bed - Urinary Catheter Management Indwelling Urethral Catheter Cath placed during this visit: yes Reason for continuing: Hourly intake/output Insertion date: 04/03/18 Insertion time: 06:46 Results - Labs CBC & Chem 7: 04/04/18 08:19 04/04/18 08:19 Laboratory Results - last 24 hr 04/03/18 04/04/18 04/04/18 16:36 08:19 08:19 WBC 6.5 RBC 4.84 Hgb 14.2 Hct 42.4 MCV 87.5 MCH 29.3 MCHC 33.5 RDW 15.1 Plt Count 150 MPV 9.7 Sodium 144 Potassium 3.7 D Chloride 107 Carbon Dioxide 29.0 Anion Gap 8 BUN 11 Creatinine 0.94 Estimated GFR 72 L Random Glucose 97 Calcium 8.8 Troponin I 0.08 H Assessment and Plan - Plan 63-year-old black female being admitted for shortness of breath, hypertensive emergency, elevated troponin. Shortness of breath Resolved with IV Lasix and improvement in blood pressures. Cardiology following, deemed no need for acute cardiac intervention. Likely secondary to acute systolic heart failure which is now improved with Lasix. EF 45% Chest pressure with elevated troponin htn emergency Resolved, likely secondary to hypertensive emergency and pulmonary edema Will need to be discharged on antihypertensives as well as aspirin and statin. Will discharge on low-dose diuretic and potassium supplementation. Patient extensively counseled on importance of following up with primary care provider to have her labs checked. History of stroke per patient Aspirin and statin Discharge Planning: Patient has met maximal benefit from hospitalization is clinically stable for discharge.
[2018-04-04 14:05] VITALS: PULSE 74
== END 2018-04-04 14:25 | disposition home or self-care (01) ==
LOC: NEPC 06:10 → NEDA 08:32 → HCIS 11:02
PROVIDERS: ADMIT Hospitalist; ATTEND Hospitalist